=== PATIENT | male | born 1965 | race Caucasian/White ===

== ENCOUNTER 2021-11-03 15:30 | Inpatient (IN) | payer MEDICAID ==
[~2021-11-03] VITALS: Ht 175.3 cm; Wt 64.4 kg
[2021-11-03 16:54] LABS: BASOPHILS % 0.7 % (0.0-2.0); EOSINOPHILS % 0.7 % (0.0-5.0); HEMATOCRIT. 33.2 % (42.0-52.0); HEMOGLOBIN. 10.9 g/dL (14.0-18.0); LYMPHOCYTES % 11.3 % (20.0-50.0); MEAN CORPUSCULAR HEMOGLOBIN 27.9 pg (28.0-32.0); MEAN PLATELET VOLUME 7.7 fl (7.4-10.4); MONOCYTES % 9.4 % (2.0-8.0); NEUTROPHILS % 77.9 % (40.0-76.0); PLATELET 267 x1000/uL (130-400); RED BLOOD CELL COUNT 3.91 mill/uL (4.7-6.1); RED CELL DISTRIBUTION WIDTH 16.1 % (11.6-14.6)
[2021-11-03 16:59] LABS: CHLORIDE 104 mEq/L (98-107)
[2021-11-03] MEDS ORDERED: ASPIRIN 81MG TABLET PO ONE (17:00)
[2021-11-03 17:11] LABS: ETHANOL BLOOD < 10 mg/dL
[2021-11-03 17:53] LABS: *AMPHETAMINES SCREEN URINE NEGATIVE (NEGATIVE); *BARBITURATES SCREEN URINE NEGATIVE (NEGATIVE); *BENZODIAZEPINES SCREEN URINE NEGATIVE (NEGATIVE); *COCAINE SCREEN URINE NEGATIVE (NEGATIVE); CANNABINOID URINE SCREEN NEGATIVE (NEGATIVE); METHADONE URINE SCREEN NEGATIVE (NEGATIVE); OPIATES URINE SCREEN PRESUMTIVE POSITIVE (NEGATIVE); PHENCYCLIDINE URINE SCREEN NEGATIVE (NEGATIVE)
[2021-11-03] MEDS ORDERED: IOHEXOL-300 100 ML BOTTLE ONE (19:48)
[2021-11-03] MEDS: LIDOCAINE 5% PATCH TOP SCH (21:10)
[2021-11-03] MEDS ORDERED: VANCOMYCIN 1G PREMIX 200 ML IV ONE (21:30)
[2021-11-03] MEDS ORDERED: GADOTERATE MEGLUMINE 5 MMOL/10 ML VIAL IV ONE (22:48)
[2021-11-03] MEDS ORDERED: VANCOMYCIN 1G PREMIX 200 ML IV SCH (23:00)
[2021-11-04] MEDS ORDERED: NALOXONE HCL 0.4MG/ML VIAL IV PRN (07:15)
[2021-11-04] MEDS: HYDROCODONE/ACETAMINOPHEN 10/325MG TABLET PO PRN ×3 (07:56→23:49)
[2021-11-04] MEDS: LIDOCAINE 5% PATCH TOP SCH (09:55)
[2021-11-04] MEDS ORDERED: VANCOMYCIN 1G PREMIX 200 ML IV SCH (10:00)
[2021-11-04] MEDS ORDERED: DEXAMETHASONE 4MG/ML 1ML VIAL IV SCH (12:00)
[2021-11-04 13:24] LABS: INR 1.1; PROTHROMBIN TIME 11.3 sec (9.6-11.0)
[2021-11-04 18:10] VITALS: BP 104/73
[2021-11-04] MEDS ORDERED: ibuprofen (18:41)
[2021-11-04] MEDS ORDERED: TOPUD MT (18:41)
[2021-11-04] MEDS ORDERED: METF-873 PO (18:41)
[2021-11-04] MEDS ORDERED: METH-653 MT (18:41)
[2021-11-04] MEDS ORDERED: GABA-290 PO (18:41)
[2021-11-04] MEDS ORDERED: zyprexa (18:41)
[2021-11-04] MEDS ORDERED: QUET100T PO (18:41)
[2021-11-04] MEDS ORDERED: HYDR50TA54 GT (18:41)
[2021-11-04 20:00] VITALS: BP 119/79
[2021-11-04] MEDS: VANCOMYCIN 1.25GM PMX (XELLIA) 250 ML IV SCH (23:49)
[2021-11-05] VITALS: BP 124/81
[2021-11-05] MEDS: METHOCARBAMOL 500MG TABLET PO SCH ×4 (01:26→17:46)
[2021-11-05 04:00] VITALS: BP 122/82
[2021-11-05] MEDS ORDERED: QUETIAPINE FUMARATE 50MG TABLET PO NR (04:30)
[2021-11-05] MEDS: PIPERACILLIN/TAZOBACTAM 3.375G in DEXT 5% WATER 50ML IV SCH ×3 (05:06→23:30)
[2021-11-05] MEDS ORDERED: PIPERACILLIN/TAZOBACTAM 3.375GM/50ML PREMIX IV SCH (06:00)
[2021-11-05 07:31] LABS: CHLORIDE 107 mEq/L (98-107)
[2021-11-05] MEDS: OLANZAPINE 10MG TABLET PO SCH (09:12)
[2021-11-05] MEDS: VANCOMYCIN 1.25GM PMX (XELLIA) 250 ML IV SCH ×3 (10:44→22:01)
[2021-11-05] MEDS: HYDROCODONE/ACETAMINOPHEN 10/325MG TABLET PO PRN (18:57)
[2021-11-05 20:00] VITALS: BP 125/73
[2021-11-05] MEDS ORDERED: QUETIAPINE FUMARATE 50MG TABLET PO SCH (21:00)
[2021-11-05] MEDS: QUETIAPINE FUMARATE 50MG TABLET PO SCH (22:01)
[2021-11-05] MEDS: LORAZEPAM 1MG TABLET PO PRN (23:28)
[2021-11-06 04:00] VITALS: BP 115/70
[2021-11-06] MEDS: PIPERACILLIN/TAZOBACTAM 3.375G in DEXT 5% WATER 50ML IV SCH ×3 (05:52→21:13)
[2021-11-06 06:55] LABS: CHLORIDE 106 mEq/L (98-107)
[2021-11-06 08:00] VITALS: BP 135/97
[2021-11-06] MEDS: VANCOMYCIN 1.25GM PMX (XELLIA) 250 ML IV SCH ×2 (09:03→20:49)
[2021-11-06] MEDS: HYDROCODONE/ACETAMINOPHEN 10/325MG TABLET PO PRN ×4 (09:03→21:12)
[2021-11-06] MEDS: METHOCARBAMOL 500MG TABLET PO SCH ×3 (09:03→16:49)
[2021-11-06] MEDS: OLANZAPINE 10MG TABLET PO SCH (09:06)
[2021-11-06] MEDS: HYDROXYZINE 25MG TABLET PO PRN ×2 (09:24→16:50)
[2021-11-06 12:00] VITALS: BP 130/81
[2021-11-06] MEDS: LORAZEPAM 1MG TABLET PO PRN ×2 (13:24→20:51)
[2021-11-06] MEDS: NICOTINE 14MG PATCH TD SCH (14:08)
[2021-11-06] MEDS: DOCUSATE SODIUM 250MG CAPSULE PO SCH (14:09)
[2021-11-06] MEDS: GABAPENTIN 300MG CAPSULE PO SCH ×2 (14:09→21:13)
[2021-11-06] MEDS: LIDOCAINE 5% PATCH TOP SCH (14:09)
[2021-11-06 16:00] VITALS: BP 131/82
[2021-11-06 20:00] VITALS: BP 129/91
[2021-11-06] MEDS ORDERED: DIPHENHYDRAMINE 50MG/ML VIAL IV PRN (20:45)
[2021-11-06] MEDS: QUETIAPINE FUMARATE 50MG TABLET PO SCH (20:51)
[2021-11-07] VITALS: BP_SYST 127; BP_SYST 130; BP_DIAS 77; BP_DIAS 88
[2021-11-07] MEDS: LORAZEPAM 1MG TABLET PO PRN ×2 (04:37→22:38)
[2021-11-07] MEDS: HYDROCODONE/ACETAMINOPHEN 10/325MG TABLET PO PRN ×3 (04:37→22:39)
[2021-11-07] MEDS: GABAPENTIN 300MG CAPSULE PO SCH (05:05)
[2021-11-07] MEDS: PIPERACILLIN/TAZOBACTAM 3.375G in DEXT 5% WATER 50ML IV SCH ×4 (05:05→22:44)
[2021-11-07 08:00] VITALS: BP 139/99
[2021-11-07] MEDS: VANCOMYCIN 1.25GM PMX (XELLIA) 250 ML IV SCH ×2 (08:45→21:08)
[2021-11-07] MEDS: NICOTINE 14MG PATCH TD SCH (08:45)
[2021-11-07] MEDS: OLANZAPINE 10MG TABLET PO SCH (08:46)
[2021-11-07] MEDS: METHOCARBAMOL 500MG TABLET PO SCH ×4 (08:46→17:14)
[2021-11-07] MEDS: LIDOCAINE 5% PATCH TOP SCH (08:46)
[2021-11-07] MEDS: DOCUSATE SODIUM 250MG CAPSULE PO SCH (08:46)
[2021-11-07] MEDS: HYDROXYZINE 25MG TABLET PO PRN ×2 (09:02→17:15)
[2021-11-07 10:57] LABS: BASOPHILS % 0.7 % (0.0-2.0); EOSINOPHILS % 2.4 % (0.0-5.0); HEMATOCRIT. 31.4 % (42.0-52.0); HEMOGLOBIN. 10.4 g/dL (14.0-18.0); LYMPHOCYTES % 19.1 % (20.0-50.0); MEAN CORPUSCULAR HEMOGLOBIN 27.6 pg (28.0-32.0); MEAN CORPUSCULAR VOLUME 83.3 fL (80.0-94.0); MEAN PLATELET VOLUME 7.5 fl (7.4-10.4); MONOCYTES % 10.8 % (2.0-8.0); PLATELET 226 x1000/uL (130-400); RED BLOOD CELL COUNT 3.77 mill/uL (4.7-6.1); RED CELL DISTRIBUTION WIDTH 16.2 % (11.6-14.6)
[2021-11-07] MEDS: QUETIAPINE FUMARATE 50MG TABLET PO SCH ×2 (11:11→21:11)
[2021-11-07 12:00] VITALS: BP 114/69
[2021-11-07] MEDS: GABAPENTIN 400MG CAPSULE PO SCH ×3 (14:00→22:40)
[2021-11-07 16:00] VITALS: BP 133/73
[2021-11-07 20:00] VITALS: BP 123/77
[2021-11-08] VITALS (16 sets, daily range): BP systolic 89–149; BP diastolic 54–100
[2021-11-08] MEDS: HYDROCODONE/ACETAMINOPHEN 10/325MG TABLET PO PRN (02:49)
[2021-11-08] MEDS: GABAPENTIN 400MG CAPSULE PO SCH ×3 (05:53→21:26)
[2021-11-08] MEDS: LORAZEPAM 1MG TABLET PO PRN (06:28)
[2021-11-08] MEDS: LIDOCAINE 5% PATCH TOP SCH (09:00)
[2021-11-08] MEDS: NICOTINE 14MG PATCH TD SCH (09:31)
[2021-11-08] MEDS: METHOCARBAMOL 500MG TABLET PO SCH ×3 (09:31→17:00)
[2021-11-08] MEDS: QUETIAPINE FUMARATE 50MG TABLET PO SCH ×2 (09:31→21:18)
[2021-11-08] MEDS: DOCUSATE SODIUM 250MG CAPSULE PO SCH (09:31)
[2021-11-08] MEDS: PIPERACILLIN/TAZOBACTAM 3.375G in DEXT 5% WATER 50ML IV SCH ×2 (09:32→21:26)
[2021-11-08] MEDS: VANCOMYCIN 1.25GM PMX (XELLIA) 250 ML IV SCH ×2 (09:32→21:26)
[2021-11-08] MEDS ORDERED: GENTAMICIN SULF 40MG/ML 2ML VIAL ONE (12:34)
[2021-11-08] MEDS ORDERED: THROMBIN (BOVINE) 5000 UNITS/VIAL TOP ONE (12:34)
[2021-11-08] MEDS ORDERED: LIDOCAINE HCL/EPINEPHRINE 1%-EPI 1:100,000 20 ML VIAL ONE (12:35)
[2021-11-08] MEDS ORDERED: SUCCINYLCHOLINE CHLORIDE 200MG/10ML IV ONE (12:51)
[2021-11-08] MEDS ORDERED: ROCURONIUM BROMIDE 10MG/ML VIAL 5ML IV ONE (14:07)
[2021-11-08] MEDS ORDERED: HYDROMORPHONE HCL/PF 2MG/ML CPJ IV PRN (15:30)
[2021-11-08] MEDS ORDERED: ONDANSETRON HCL 4MG/2ML INJ IV PRN (15:30)
[2021-11-08] MEDS ORDERED: LABETALOL 5MG/ML SYR 20 MG/4 ML SYRINGE IV PRN (15:30)
[2021-11-08] MEDS ORDERED: MEPERIDINE HCL/PF 25MG/ML CPJ IV PRN (15:30)
[2021-11-08] MEDS ORDERED: NICARDIPINE 100 MG in SODIUM CHLORIDE 0.9% 60 ML IV PRN (16:00)
[2021-11-08] MEDS: DEXT 5%/LACTATED RINGERS 1,000 ML IV SCH ×2 (17:34→20:00)
[2021-11-08] MEDS: HYDROMORPHONE HCL/PF 2MG/ML CPJ IV PRN (21:19)
[2021-11-09] VITALS (36 sets, daily range): BP systolic 74–149; BP diastolic 50–115
[2021-11-09] MEDS: HYDROMORPHONE HCL/PF 2MG/ML CPJ IV PRN ×7 (01:33→22:36)
[2021-11-09] MEDS: DEXT 5%/LACTATED RINGERS 1,000 ML IV SCH ×3 (05:07→20:00)
[2021-11-09] MEDS: PIPERACILLIN/TAZOBACTAM 3.375G in DEXT 5% WATER 50ML IV SCH ×3 (05:07→21:34)
[2021-11-09] MEDS: GABAPENTIN 400MG CAPSULE PO SCH ×3 (05:08→21:35)
[2021-11-09] MEDS: VANCOMYCIN 1.25GM PMX (XELLIA) 250 ML IV SCH ×2 (08:41→20:11)
[2021-11-09] MEDS: DOCUSATE SODIUM 250MG CAPSULE PO SCH (08:41)
[2021-11-09] MEDS: QUETIAPINE FUMARATE 50MG TABLET PO SCH ×2 (08:41→20:11)
[2021-11-09] MEDS: NICOTINE 14MG PATCH TD SCH (08:42)
[2021-11-09] MEDS: LIDOCAINE 5% PATCH TOP SCH (08:42)
[2021-11-09] MEDS: METHOCARBAMOL 500MG TABLET PO SCH ×3 (08:44→17:02)
[2021-11-09] MEDS: MORPHINE SULFATE 4 MG/ML CPJ (NOT FOR IM USE) IV PRN ×2 (08:44→21:35)
[2021-11-09] MEDS: ONDANSETRON HCL 4MG/2ML INJ IV PRN (11:30)
[2021-11-09] MEDS: HYDROXYZINE 25MG TABLET PO PRN (23:44)
[2021-11-10] VITALS (9 sets, daily range): BP systolic 104–139; BP diastolic 64–97
[2021-11-10] MEDS: MORPHINE SULFATE 4 MG/ML CPJ (NOT FOR IM USE) IV PRN ×6 (00:51→23:57)
[2021-11-10] MEDS: LORAZEPAM 1MG TABLET PO PRN ×3 (02:33→16:18)
[2021-11-10] MEDS: HYDROMORPHONE HCL/PF 2MG/ML CPJ IV PRN ×4 (02:34→21:54)
[2021-11-10] MEDS: DEXT 5%/LACTATED RINGERS 1,000 ML IV SCH ×3 (04:00→20:00)
[2021-11-10] MEDS: GABAPENTIN 400MG CAPSULE PO SCH ×3 (05:32→21:51)
[2021-11-10] MEDS: PIPERACILLIN/TAZOBACTAM 3.375G in DEXT 5% WATER 50ML IV SCH ×4 (05:40→23:30)
[2021-11-10] MEDS: METHOCARBAMOL 500MG TABLET PO SCH ×3 (09:19→16:13)
[2021-11-10] MEDS: DOCUSATE SODIUM 250MG CAPSULE PO SCH (09:20)
[2021-11-10] MEDS: QUETIAPINE FUMARATE 50MG TABLET PO SCH ×2 (09:20→21:51)
[2021-11-10] MEDS: NICOTINE 14MG PATCH TD SCH (09:21)
[2021-11-10] MEDS: LIDOCAINE 5% PATCH TOP SCH (09:22)
[2021-11-10] MEDS: VANCOMYCIN 1.25GM PMX (XELLIA) 250 ML IV SCH ×2 (11:47→21:43)
[2021-11-10 15:42] LABS: BASOPHILS % 0.4 % (0.0-2.0); EOSINOPHILS % 0.7 % (0.0-5.0); HEMATOCRIT. 29.7 % (42.0-52.0); HEMOGLOBIN. 9.7 g/dL (14.0-18.0); LYMPHOCYTES % 9.8 % (20.0-50.0); MEAN CORPUSCULAR HEMOGLOBIN 27.2 pg (28.0-32.0); MEAN CORPUSCULAR VOLUME 83.5 fL (80.0-94.0); MEAN PLATELET VOLUME 7.7 fl (7.4-10.4); MONOCYTES % 14.2 % (2.0-8.0); NEUTROPHILS % 74.9 % (40.0-76.0); PLATELET 195 x1000/uL (130-400); RED BLOOD CELL COUNT 3.56 mill/uL (4.7-6.1); RED CELL DISTRIBUTION WIDTH 16.4 % (11.6-14.6)
[2021-11-10 16:18] LABS: CHLORIDE 95 mEq/L (98-107)
[2021-11-10] MEDS: RIFAMPIN 300MG CAPSULE PO SCH (18:36)
[2021-11-10] MEDS: LAMOTRIGINE 25MG TABLET PO SCH (21:45)
[2021-11-10] MEDS: OLANZAPINE 5MG TABLET ODT PO PRN (23:46)
[2021-11-11] VITALS: BP 130/86
[2021-11-11] MEDS: HYDROMORPHONE HCL/PF 2MG/ML CPJ IV PRN ×2 (01:55→11:34)
[2021-11-11 04:00] VITALS: BP 125/82
[2021-11-11] MEDS: DEXT 5%/LACTATED RINGERS 1,000 ML IV SCH ×4 (04:00→22:30)
[2021-11-11 06:01] LABS: BASOPHILS % 0.5 % (0.0-2.0); EOSINOPHILS % 0.5 % (0.0-5.0); HEMATOCRIT. 26.1 % (42.0-52.0); HEMOGLOBIN. 8.8 g/dL (14.0-18.0); LYMPHOCYTES % 10.6 % (20.0-50.0); MEAN CORPUSCULAR HEMOGLOBIN 27.5 pg (28.0-32.0); MEAN CORPUSCULAR VOLUME 81.6 fL (80.0-94.0); NEUTROPHILS % 74.4 % (40.0-76.0); PLATELET 207 x1000/uL (130-400); RED BLOOD CELL COUNT 3.19 mill/uL (4.7-6.1); RED CELL DISTRIBUTION WIDTH 16.5 % (11.6-14.6)
[2021-11-11 06:18] LABS: CHLORIDE 96 mEq/L (98-107)
[2021-11-11] MEDS: GABAPENTIN 400MG CAPSULE PO SCH ×3 (06:34→21:11)
[2021-11-11 08:00] VITALS: BP 110/72
[2021-11-11] MEDS: MORPHINE SULFATE 4 MG/ML CPJ (NOT FOR IM USE) IV PRN ×5 (08:20→23:47)
[2021-11-11] MEDS: RIFAMPIN 300MG CAPSULE PO SCH ×2 (08:25→16:02)
[2021-11-11] MEDS: LAMOTRIGINE 25MG TABLET PO SCH ×2 (08:25→21:27)
[2021-11-11] MEDS: METHOCARBAMOL 500MG TABLET PO SCH ×4 (08:25→22:21)
[2021-11-11] MEDS: THIAMINE HCL 100MG TABLET PO SCH (08:25)
[2021-11-11] MEDS: VANCOMYCIN 1.25GM PMX (XELLIA) 250 ML IV SCH ×2 (08:26→21:10)
[2021-11-11] MEDS: DOCUSATE SODIUM 250MG CAPSULE PO SCH (08:26)
[2021-11-11] MEDS: QUETIAPINE FUMARATE 50MG TABLET PO SCH ×2 (08:26→21:11)
[2021-11-11] MEDS: NICOTINE 14MG PATCH TD SCH (08:27)
[2021-11-11] MEDS: LIDOCAINE 5% PATCH TOP SCH (08:27)
[2021-11-11] MEDS: ONDANSETRON HCL 4MG/2ML INJ IV PRN (10:02)
[2021-11-11 12:00] VITALS: BP 109/63
[2021-11-11] MEDS: CLONAZEPAM 0.5MG TABLET PO SCH ×2 (13:31→21:13)
[2021-11-11] MEDS: HYDROCODONE/ACETAMINOPHEN 5/325MG TABLET PO PRN (13:32)
[2021-11-11 20:00] VITALS: BP 143/98
[2021-11-11] MEDS: MICONAZOLE NITRATE 2% OINT 71GM TOP SCH (21:00)
[2021-11-11] MEDS: OLANZAPINE 5MG TABLET ODT PO PRN (21:11)
[2021-11-11 21:20] LABS: CREATINE KINASE 65 IU/L (39-308)
[2021-11-12] VITALS: BP 132/84
[2021-11-12] MEDS: HYDROCODONE/ACETAMINOPHEN 5/325MG TABLET PO PRN ×2 (01:13→13:30)
[2021-11-12] MEDS: MORPHINE SULFATE 4 MG/ML CPJ (NOT FOR IM USE) IV PRN (01:50)
[2021-11-12] MEDS: MORPHINE SULFATE 2 MG/ML CPJ (NOT FOR IM USE) IV PRN ×6 (03:58→18:53)
[2021-11-12 04:00] VITALS: BP 128/89
[2021-11-12] MEDS: CLONAZEPAM 0.5MG TABLET PO SCH ×3 (06:04→21:32)
[2021-11-12] MEDS: GABAPENTIN 400MG CAPSULE PO SCH ×3 (06:04→21:32)
[2021-11-12 08:00] VITALS: BP 114/84
[2021-11-12] MEDS: NICOTINE 14MG PATCH TD SCH (09:00)
[2021-11-12] MEDS: DOCUSATE SODIUM 250MG CAPSULE PO SCH (09:00)
[2021-11-12] MEDS: VANCOMYCIN 1.25GM PMX (XELLIA) 250 ML IV SCH ×2 (09:00→21:39)
[2021-11-12] MEDS: METHOCARBAMOL 500MG TABLET PO SCH ×4 (09:01→21:00)
[2021-11-12] MEDS: RIFAMPIN 300MG CAPSULE PO SCH ×2 (09:01→17:08)
[2021-11-12] MEDS: THIAMINE HCL 100MG TABLET PO SCH (09:01)
[2021-11-12] MEDS: LAMOTRIGINE 25MG TABLET PO SCH ×2 (09:02→21:00)
[2021-11-12] MEDS: OLANZAPINE 5MG TABLET ODT PO PRN (09:02)
[2021-11-12] MEDS: QUETIAPINE FUMARATE 50MG TABLET PO SCH ×2 (09:03→21:28)
[2021-11-12] MEDS: LIDOCAINE 5% PATCH TOP SCH (09:11)
[2021-11-12] MEDS: HYDROMORPHONE HCL/PF 2MG/ML CPJ IV PRN (09:13)
[2021-11-12 12:00] VITALS: BP 134/84
[2021-11-12] MEDS: DEXT 5%/LACTATED RINGERS 1,000 ML IV SCH ×2 (12:00→20:00)
[2021-11-12 15:35] VITALS: BP 130/87
[2021-11-12] MEDS: ONDANSETRON HCL 4MG/2ML INJ IV PRN (18:52)
[2021-11-12 20:00] VITALS: BP 147/100
[2021-11-12] MEDS: MICONAZOLE NITRATE 2% OINT 71GM TOP SCH (21:00)
[2021-11-13] MEDS: METHOCARBAMOL 500MG TABLET PO SCH ×4 (03:53→21:50)
[2021-11-13 04:00] VITALS: BP 143/91
[2021-11-13] MEDS: DEXT 5%/LACTATED RINGERS 1,000 ML IV SCH ×3 (04:52→21:58)
[2021-11-13] MEDS: MORPHINE SULFATE 4 MG/ML CPJ (NOT FOR IM USE) IV PRN ×6 (04:52→21:45)
[2021-11-13] MEDS: HYDROMORPHONE HCL/PF 2MG/ML CPJ IV PRN (05:58)
[2021-11-13] MEDS: CLONAZEPAM 0.5MG TABLET PO SCH ×3 (07:35→21:50)
[2021-11-13] MEDS: GABAPENTIN 400MG CAPSULE PO SCH ×3 (07:36→21:47)
[2021-11-13 08:00] VITALS: BP 133/98
[2021-11-13] MEDS: LAMOTRIGINE 25MG TABLET PO SCH ×2 (08:37→21:54)
[2021-11-13] MEDS: QUETIAPINE FUMARATE 50MG TABLET PO SCH ×2 (08:37→21:50)
[2021-11-13] MEDS: RIFAMPIN 300MG CAPSULE PO SCH ×2 (08:38→18:53)
[2021-11-13] MEDS: THIAMINE HCL 100MG TABLET PO SCH (08:38)
[2021-11-13] MEDS: DOCUSATE SODIUM 250MG CAPSULE PO SCH (08:38)
[2021-11-13] MEDS: LIDOCAINE 5% PATCH TOP SCH (08:47)
[2021-11-13] MEDS: VANCOMYCIN 1.25GM PMX (XELLIA) 250 ML IV SCH (08:52)
[2021-11-13] MEDS: ONDANSETRON HCL 4MG/2ML INJ IV PRN (08:52)
[2021-11-13] MEDS: NICOTINE 14MG PATCH TD SCH (09:00)
[2021-11-13 12:00] VITALS: BP 131/77
[2021-11-13] MEDS: HYDROCODONE/APAP 7.5/325MG 1 TAB TABLET PO PRN (13:40)
[2021-11-13 16:00] VITALS: BP 114/75
[2021-11-13 20:00] VITALS: BP 123/77
[2021-11-13] MEDS: MICONAZOLE NITRATE 2% OINT 71GM TOP SCH ×2 (21:52→22:02)
[2021-11-13] MEDS: VANCOMYCIN 1250MG in DEXTROSE 5% WATER 250ML IV SCH (21:55)
[2021-11-14] VITALS: BP 112/73
[2021-11-14] MEDS: HYDROCODONE/APAP 7.5/325MG 1 TAB TABLET PO PRN ×2 (00:30→13:14)
[2021-11-14] MEDS: MORPHINE SULFATE 4 MG/ML CPJ (NOT FOR IM USE) IV PRN ×3 (03:11→10:24)
[2021-11-14] MEDS: DEXT 5%/LACTATED RINGERS 1,000 ML IV SCH (03:13)
[2021-11-14 04:00] VITALS: BP 124/84
[2021-11-14] MEDS: CLONAZEPAM 0.5MG TABLET PO SCH (05:53)
[2021-11-14] MEDS: GABAPENTIN 400MG CAPSULE PO SCH (05:53)
[2021-11-14 07:19] LABS: CHLORIDE 98 mEq/L (98-107)
[2021-11-14 07:58] VITALS: BP 120/64
[2021-11-14] MEDS: NICOTINE 14MG PATCH TD SCH (09:00)
[2021-11-14] MEDS: LIDOCAINE 5% PATCH TOP SCH (09:00)
[2021-11-14] MEDS: QUETIAPINE FUMARATE 50MG TABLET PO SCH (09:04)
[2021-11-14] MEDS: THIAMINE HCL 100MG TABLET PO SCH (09:04)
[2021-11-14] MEDS: RIFAMPIN 300MG CAPSULE PO SCH (09:04)
[2021-11-14] MEDS: DOCUSATE SODIUM 250MG CAPSULE PO SCH (09:04)
[2021-11-14] MEDS: LAMOTRIGINE 25MG TABLET PO SCH (09:05)
[2021-11-14] MEDS: METHOCARBAMOL 500MG TABLET PO SCH (09:05)
[2021-11-14] MEDS: MICONAZOLE NITRATE 2% OINT 71GM TOP SCH (10:13)
[2021-11-14] MEDS: VANCOMYCIN 1250MG in DEXTROSE 5% WATER 250ML IV SCH (10:13)
[2021-11-14 12:00] VITALS: BP 130/83
[2021-11-14 12:54] VITALS: BP 136/76
[2021-11-14 13:14] VITALS: BP 136/82
[2021-11-14] MEDS ORDERED: VANCOMYCIN 1250MG in DEXTROSE 5% WATER 250ML IV SCH (15:00)
[2021-11-23] MEDS ORDERED: HYDR-4001 PO (13:11)
[2021-11-23] MEDS ORDERED: FERR-63 PO (13:11)
[2021-11-23] MEDS ORDERED: TOPUD MT (13:11)
[2021-11-23] MEDS ORDERED: HYDR-3735 PO (13:11)
[2021-11-23] MEDS ORDERED: SULF1TAB44 PO (13:11)
[2021-11-23] MEDS ORDERED: GABA-290 PO (13:11)
== END 2021-11-14 14:10 | DRG 304 ==
LOC: ER 15:30 → MICUSO 11-04 01:42 → 7WST 11-04 12:44 → MICUSO 11-04 13:02 → 7WST 11-04 15:00 → MICUSO 11-04 15:46 → 6EST 11-04 15:50 → MICUSO 11-08 17:43 → 6EST 11-10 02:21
PROVIDERS: ADMIT Internal Medicine; ATTEND Internal Medicine
PROC: 0SG0071 Fusion of Lumbar Vertebral Joint with Autologous Tissue Substitute, Posterior Approach, Posterior Column, Open Approach (ICD-10-PCS; principal; 2021-11-08)
PROC: 0SG3071 Fusion of Lumbosacral Joint with Autologous Tissue Substitute, Posterior Approach, Posterior Column, Open Approach (ICD-10-PCS; 2021-11-08)
PROC: 009U0ZZ Drainage of Spinal Canal, Open Approach (ICD-10-PCS; 2021-11-08)
DX: M48.061 Spinal stenosis, lumbar region without neurogenic claudication (principal); G06.1 Intraspinal abscess and granuloma; G82.20 Paraplegia, unspecified; E44.0 Moderate protein-calorie malnutrition; I42.9 Cardiomyopathy, unspecified; M48.56XA Collapsed vertebra, not elsewhere classified, lumbar region, initial encounter for fracture; F31.2 Bipolar disorder, current episode manic severe with psychotic features; G95.20 Unspecified cord compression; M46.26 Osteomyelitis of vertebra, lumbar region; E11.69 Type 2 diabetes mellitus with other specified complication; I10 Essential (primary) hypertension; D64.9 Anemia, unspecified; M46.46 Discitis, unspecified, lumbar region; J44.9 Chronic obstructive pulmonary disease, unspecified; R74.01 Elevation of levels of liver transaminase levels; F43.10 Post-traumatic stress disorder, unspecified; Z20.822 Contact with and (suspected) exposure to COVID-19; F11.10 Opioid abuse, uncomplicated; F17.210 Nicotine dependence, cigarettes, uncomplicated; M19.90 Unspecified osteoarthritis, unspecified site; Z79.899 Other long term (current) drug therapy; Z86.14 Personal history of Methicillin resistant Staphylococcus aureus infection; Z91.19 Patient's noncompliance with other medical treatment and regimen; Z88.8 Allergy status to other drugs, medicaments and biological substances; F10.11 Alcohol abuse, in remission; F19.90 Other psychoactive substance use, unspecified, uncomplicated
CPT/HCPCS: 36415; 71045; 72100; 72132; 72157; 72158; 76000; 80048; 80053; 80076; 80202; 80305; 80320; 82550; 83036; 83880; 84145; 84484; 85025; 85651; 86141; 87070; 87075; 87077; 87186; 87426; 93005; 93306; 95863; 95925; 95926; 95928; 95929; 97161; 97162; 97530; 99291; A9577; C1713; J0330; J1170; J1200; J1580; J2270; J2405; J2543; J3370; J3490; J7060; J7070; J7121; Q9967; C1762; G0480

== ENCOUNTER 2021-11-15 13:56 | Emergency (ER) | payer MEDICAID ==
[~2021-11-15] VITALS: Ht 175.3 cm; Wt 67.0 kg
[~2021-11-15 13:56] MED LIST: GABA-290 PO; HYDR50TA54 GT; METF-873 PO; METH-653 MT; QUET100T PO; TOPUD MT; ibuprofen; zyprexa
[2021-11-15] MEDS ORDERED: QUETIAPINE FUMARATE 50MG TABLET PO SCH (15:00)
[2021-11-15] MEDS ORDERED: CLONAZEPAM 0.5MG TABLET PO ONE (15:00)
[2021-11-15] MEDS ORDERED: CLONAZEPAM 0.5MG TABLET PO NR (15:45)
[2021-11-15] MEDS ORDERED: HYDROCODONE/ACETAMINOPHEN 10/325MG TABLET PO ONE (17:30)
[2021-11-15] MEDS ORDERED: DIPHENHYDRAMINE 50MG/ML VIAL IM PRN (17:30)
[2021-11-15 19:16] VITALS: BP 142/77
[2021-11-23] MEDS ORDERED: GABA-290 PO (13:11)
[2021-11-23] MEDS ORDERED: HYDR-4001 PO (13:11)
[2021-11-23] MEDS ORDERED: FERR-63 PO (13:11)
[2021-11-23] MEDS ORDERED: TOPUD MT (13:11)
[2021-11-23] MEDS ORDERED: SULF1TAB44 PO (13:11)
[2021-11-23] MEDS ORDERED: HYDR-3735 PO (13:11)
== END 2021-11-15 19:42 | disposition home or self-care (01) ==
LOC: ER 14:11 → SUPCPDRO 18:19 → ER 19:42
DX: F32.9 Major depressive disorder, single episode, unspecified (principal); E11.9 Type 2 diabetes mellitus without complications; I10 Essential (primary) hypertension; F20.9 Schizophrenia, unspecified; D64.9 Anemia, unspecified; Z88.8 Allergy status to other drugs, medicaments and biological substances; Z86.14 Personal history of Methicillin resistant Staphylococcus aureus infection
CPT/HCPCS: 99284; Z7610

== ENCOUNTER 2021-11-17 01:02 | Inpatient (IN) | payer MEDICAID ==
[~2021-11-17] VITALS: Ht 185.4 cm; Wt 80.0 kg
[2021-11-17 03:15] LABS: BASOPHILS % 0.7 % (0.0-2.0); EOSINOPHILS % 1.9 % (0.0-5.0); HEMATOCRIT. 30.3 % (42.0-52.0); HEMOGLOBIN. 9.8 g/dL (14.0-18.0); LYMPHOCYTES % 23.5 % (20.0-50.0); MEAN CORPUSCULAR HEMOGLOBIN 27.2 pg (28.0-32.0); MEAN CORPUSCULAR VOLUME 83.7 fL (80.0-94.0); MEAN PLATELET VOLUME 6.6 fl (7.4-10.4); MONOCYTES % 11.9 % (2.0-8.0); PLATELET 345 x1000/uL (130-400); RED BLOOD CELL COUNT 3.61 mill/uL (4.7-6.1); RED CELL DISTRIBUTION WIDTH 16.5 % (11.6-14.6)
[2021-11-17 03:33] LABS: CHLORIDE 105 mEq/L (98-107)
[2021-11-17 03:41] LABS: ETHANOL BLOOD < 10 mg/dL
[2021-11-17 05:24] LABS: CLARITY URINE CLEAR (CLEAR); COLOR URINE YELLOW (YELLOW); KETONES URINE NEGATIVE (NEGATIVE); LEUKOCYTE ESTERASE URINE NEGATIVE (NEGATIVE); NITRITE URINE NEGATIVE (NEGATIVE); OCCULT BLOOD URINE NEGATIVE (NEGATIVE); PROTEIN URINE NEGATIVE (NEGATIVE); SPECIFIC GRAVITY URINE 1.017 (1.005-1.030); UROBILINOGEN URINE 0.2 E.U./dL (0.2-1.0)
[2021-11-17] MEDS ORDERED: HYDROCODONE/ACETAMINOPHEN 5/325MG TABLET PO ONE (05:30)
[2021-11-17 05:38] LABS: *AMPHETAMINES SCREEN URINE NEGATIVE (NEGATIVE); *BARBITURATES SCREEN URINE NEGATIVE (NEGATIVE); *BENZODIAZEPINES SCREEN URINE NEGATIVE (NEGATIVE); *COCAINE SCREEN URINE NEGATIVE (NEGATIVE); CANNABINOID URINE SCREEN NEGATIVE (NEGATIVE); METHADONE URINE SCREEN NEGATIVE (NEGATIVE); OPIATES URINE SCREEN PRESUMTIVE POSITIVE (NEGATIVE); PHENCYCLIDINE URINE SCREEN NEGATIVE (NEGATIVE)
[2021-11-17] MEDS: OLANZAPINE 5MG TABLET PO SCH ×2 (10:33→17:23)
[2021-11-17] MEDS ORDERED: SODIUM CHLORIDE 0.9% 1,000 ML IV ONE (11:30)
[2021-11-17] MEDS ORDERED: GABAPENTIN 300MG CAPSULE PO ONE (20:30)
[2021-11-18] MEDS: OLANZAPINE 5MG TABLET PO SCH ×2 (09:38→17:38)
[2021-11-18] MEDS ORDERED: ONDANSETRON HCL 4MG/2ML INJ IV PRN (21:30)
[2021-11-18] MEDS ORDERED: CLONIDINE 0.1MG TABLET PO PRN (21:30)
[2021-11-18] MEDS ORDERED: IPRATROPIUM/ALBUTEROL 0.5-3(2.5)MG/3ML NEB NEB PRN (21:30)
[2021-11-18] MEDS ORDERED: ACETAMINOPHEN 325MG TABLET PO PRN ×2 (21:30)
[2021-11-18] MEDS ORDERED: MAGNESIUM/ALUMINUM HYDROXIDE/SIMETHICONE 30ML UDC PO PRN (21:30)
[2021-11-18] MEDS ORDERED: GUAIFENESIN 200MG/10ML SUGAR FREE UDC PO PRN (21:30)
[2021-11-18] MEDS ORDERED: SODIUM CHLORIDE 0.9% 1,000 ML IV SCH (21:45)
[2021-11-18] MEDS: HYDROCODONE/ACETAMINOPHEN 5/325MG TABLET PO PRN (22:08)
[2021-11-18] MEDS ORDERED: VANCOMYCIN 1,750 MG in DEXT 5% WATER 500 ML IV NR (23:00)
[2021-11-19] MEDS: CLONAZEPAM 0.5MG TABLET PO SCH ×2 (01:00→07:12)
[2021-11-19] MEDS: RIFAMPIN 300MG CAPSULE PO SCH ×2 (01:01→09:00)
[2021-11-19] MEDS: METHOCARBAMOL 500MG TABLET PO SCH ×2 (01:36→07:12)
[2021-11-19] MEDS: HYDROCODONE/ACETAMINOPHEN 5/325MG TABLET PO PRN (02:35)
[2021-11-19] MEDS ORDERED: VANCOMYCIN 1GM PMX (XELLIA) 200 ML IV SCH (06:00)
[2021-11-19] MEDS ORDERED: OLANZAPINE 5MG TABLET PO SCH (09:00)
[2021-11-19 09:46] LABS: BASOPHILS % 0.5 % (0.0-2.0); EOSINOPHILS % 1.3 % (0.0-5.0); HEMATOCRIT. 35.6 % (42.0-52.0); HEMOGLOBIN. 11.6 g/dL (14.0-18.0); LYMPHOCYTES % 15.2 % (20.0-50.0); MEAN CORPUSCULAR HEMOGLOBIN 27.2 pg (28.0-32.0); MEAN CORPUSCULAR VOLUME 83.4 fL (80.0-94.0); MEAN PLATELET VOLUME 6.5 fl (7.4-10.4); MONOCYTES % 11.4 % (2.0-8.0); NEUTROPHILS % 71.6 % (40.0-76.0); PLATELET 426 x1000/uL (130-400); RED BLOOD CELL COUNT 4.27 mill/uL (4.7-6.1); RED CELL DISTRIBUTION WIDTH 16.7 % (11.6-14.6)
[2021-11-19 09:56] LABS: CHLORIDE 100 mEq/L (98-107)
[2021-11-19 14:10] VITALS: BP 124/75
[2021-11-20 06:32] LABS: CHLORIDE 107 mEq/L (98-107)
== END 2021-11-19 14:30 | disposition left against medical advice (07) | DRG 344 ==
LOC: ER 01:02 → MICUSO 10:44 → EDBEDREQ 11:03 → ENRESERV 11:59 → CANBEDREQ 15:23
PROVIDERS: ADMIT Internal Medicine; ATTEND Internal Medicine
DX: M46.26 Osteomyelitis of vertebra, lumbar region (principal); R45.851 Suicidal ideations; E46 Unspecified protein-calorie malnutrition; E11.69 Type 2 diabetes mellitus with other specified complication; F25.9 Schizoaffective disorder, unspecified; R45.850 Homicidal ideations; D64.9 Anemia, unspecified; F31.9 Bipolar disorder, unspecified; I10 Essential (primary) hypertension; Z20.822 Contact with and (suspected) exposure to COVID-19; R74.01 Elevation of levels of liver transaminase levels; Z91.09 Other allergy status, other than to drugs and biological substances; Z68.23 Body mass index [BMI] 23.0-23.9, adult; Z53.29 Procedure and treatment not carried out because of patient's decision for other reasons; Z98.890 Other specified postprocedural states; R26.2 Difficulty in walking, not elsewhere classified; M46.46 Discitis, unspecified, lumbar region
CPT/HCPCS: 36415; 80048; 80053; 80202; 80305; 80307; 80320; 80329; 81003; 85025; 96360; 99285; C9803; J3370; J7030; J7060; U0003; U0005; G0480

== ENCOUNTER 2021-11-19 16:38 | Inpatient (IN) | payer MEDICAID ==
[~2021-11-19] VITALS: Ht 172.7 cm; Wt 64.4 kg
[2021-11-19] MEDS ORDERED: ACETAMINOPHEN 325MG TABLET PO ONE (17:45)
[2021-11-19] MEDS: OLANZAPINE 5MG TABLET ODT PO SCH (17:45)
[2021-11-19] MEDS ORDERED: SODIUM CHLORIDE 0.9% 1,000 ML IV ONE (17:45)
[2021-11-19 18:03] LABS: HEMATOCRIT. 34.9 % (42.0-52.0); HEMOGLOBIN. 11.3 g/dL (14.0-18.0); MEAN CORPUSCULAR HEMOGLOBIN 27.2 pg (28.0-32.0); MEAN CORPUSCULAR VOLUME 84.1 fL (80.0-94.0); PLATELET 412 x1000/uL (130-400); RED BLOOD CELL COUNT 4.15 mill/uL (4.7-6.1); RED CELL DISTRIBUTION WIDTH 16.6 % (11.6-14.6)
[2021-11-19 18:15] LABS: CHLORIDE 102 mEq/L (98-107)
[2021-11-19 18:17] LABS: CLARITY URINE CLOUDY (CLEAR); COLOR URINE DARK YELLOW (YELLOW); KETONES URINE TRACE (NEGATIVE); LEUKOCYTE ESTERASE URINE 1+ (NEGATIVE); NITRITE URINE POSITIVE (NEGATIVE); OCCULT BLOOD URINE 1+ (NEGATIVE); PH URINE 5.5 (4.5-8.0); PROTEIN URINE 1+ (NEGATIVE); SPECIFIC GRAVITY URINE 1.017 (1.005-1.030)
[2021-11-19 18:45] LABS: PLATELET ESTIMATE INCREASED
[2021-11-19] MEDS ORDERED: HYDROXYZINE 25MG TABLET PO ONE (21:15)
[2021-11-19] MEDS: GABAPENTIN 300MG CAPSULE PO SCH (21:41)
[2021-11-19] MEDS: CLONAZEPAM 0.5MG TABLET PO SCH (22:46)
[2021-11-19] MEDS: METHOCARBAMOL 750MG TABLET PO SCH (22:46)
[2021-11-20] MEDS ORDERED: MAGNESIUM/ALUMINUM HYDROXIDE/SIMETHICONE 30ML UDC PO PRN (00:45)
[2021-11-20] MEDS ORDERED: GUAIFENESIN 200MG/10ML SUGAR FREE UDC PO PRN (00:45)
[2021-11-20] MEDS ORDERED: VANCOMYCIN 1250MG in DEXTROSE 5% WATER 250ML IV NR (01:00)
[2021-11-20 05:48] LABS: HEMATOCRIT 26.3 % (42.0-52.0); HEMOGLOBIN 8.6 g/dL (14.0-18.0); MEAN CORPUSCULAR HEMOGLOBIN 27.6 pg (28.0-32.0); MEAN CORPUSCULAR VOLUME 84.1 fL (80.0-94.0); PLATELET 229 x1000/uL (130-400); RED BLOOD CELL COUNT 3.13 mill/uL (4.7-6.1); RED CELL DISTRIBUTION WIDTH 16.5 % (11.6-14.6)
[2021-11-20] MEDS: GABAPENTIN 300MG CAPSULE PO SCH ×3 (06:33→20:41)
[2021-11-20] MEDS: METHOCARBAMOL 750MG TABLET PO SCH ×2 (06:33→15:54)
[2021-11-20] MEDS: CLONAZEPAM 0.5MG TABLET PO SCH ×2 (06:33→15:54)
[2021-11-20] MEDS ORDERED: HYDROCODONE/ACETAMINOPHEN 5/325MG TABLET PO PRN (08:30)
[2021-11-20] MEDS ORDERED: ACETAMINOPHEN 325MG TABLET PO PRN (08:30)
[2021-11-20] MEDS: OLANZAPINE 5MG TABLET ODT PO SCH ×2 (09:00→20:41)
[2021-11-20] MEDS ORDERED: VANCOMYCIN 750MG PREMIX 150 ML IV SCH ×2 (09:00→10:00)
[2021-11-20] MEDS: RIFAMPIN 300MG CAPSULE PO SCH ×2 (09:00→20:41)
[2021-11-20] MEDS ORDERED: VANCOMYCIN 1G PREMIX 200 ML IV SCH (12:00)
[2021-11-20] MEDS: VANCOMYCIN 1GM PMX (XELLIA) 200 ML IV SCH ×2 (12:20→23:46)
[2021-11-20] MEDS: HYDROCODONE/ACETAMINOPHEN 5/325MG TABLET PO PRN ×2 (15:54→22:41)
[2021-11-20 16:49] VITALS: BP 141/75
[2021-11-20 16:57] VITALS: BP 141/75
[2021-11-20] MEDS ORDERED: NALOXONE HCL 0.4MG/ML VIAL IV PRN (17:15)
[2021-11-20 20:00] VITALS: BP_SYST 86
[2021-11-21] VITALS: BP 134/86
[2021-11-21] MEDS: HYDROXYZINE 25MG TABLET PO PRN ×3 (02:35→21:26)
[2021-11-21 04:00] VITALS: BP 139/81
[2021-11-21] MEDS: HYDROCODONE/ACETAMINOPHEN 5/325MG TABLET PO PRN ×4 (05:10→22:50)
[2021-11-21] MEDS: GABAPENTIN 300MG CAPSULE PO SCH ×3 (05:11→21:26)
[2021-11-21 07:16] LABS: HEMATOCRIT. 32.1 % (42.0-52.0); HEMOGLOBIN. 10.6 g/dL (14.0-18.0); MEAN CORPUSCULAR HEMOGLOBIN 27.4 pg (28.0-32.0); MEAN CORPUSCULAR VOLUME 83.1 fL (80.0-94.0); MEAN PLATELET VOLUME 6.9 fl (7.4-10.4); PLATELET 308 x1000/uL (130-400); RED BLOOD CELL COUNT 3.86 mill/uL (4.7-6.1); RED CELL DISTRIBUTION WIDTH 16.2 % (11.6-14.6)
[2021-11-21 07:39] LABS: CHLORIDE 105 mEq/L (98-107)
[2021-11-21 08:00] VITALS: BP 124/79
[2021-11-21] MEDS: RIFAMPIN 300MG CAPSULE PO SCH (08:27)
[2021-11-21] MEDS: OLANZAPINE 5MG TABLET ODT PO SCH ×2 (08:27→21:26)
[2021-11-21 12:00] VITALS: BP 129/81
[2021-11-21] MEDS: VANCOMYCIN 1GM PMX (XELLIA) 200 ML IV SCH (13:05)
[2021-11-21] MEDS: SULFAMETHOXAZOLE/TRIMETHOPRIM 800/160MG TABLET PO SCH ×2 (13:55→21:25)
[2021-11-21 14:40] LABS: PLATELET ESTIMATE NORMAL
[2021-11-21 16:00] VITALS: BP 107/69
[2021-11-21] MEDS: DIAZEPAM 5 MG/ML 2ML CPJ IV PRN ×2 (16:54→22:55)
[2021-11-21 20:43] VITALS: BP 123/75
[2021-11-22 00:36] VITALS: BP 118/65
[2021-11-22 04:00] VITALS: BP 109/69
[2021-11-22] MEDS: HYDROCODONE/ACETAMINOPHEN 5/325MG TABLET PO PRN ×3 (05:05→18:34)
[2021-11-22] MEDS: HYDROXYZINE 25MG TABLET PO PRN ×2 (05:20→18:33)
[2021-11-22] MEDS: GABAPENTIN 300MG CAPSULE PO SCH ×3 (05:20→21:01)
[2021-11-22] MEDS: LORAZEPAM 0.5MG TABLET PO PRN ×2 (06:31→18:33)
[2021-11-22 07:26] LABS: HEMOGLOBIN 9.6 g/dL (14.0-18.0); MEAN CORPUSCULAR HEMOGLOBIN 27.4 pg (28.0-32.0); MEAN CORPUSCULAR VOLUME 83.1 fL (80.0-94.0); PLATELET 275 x1000/uL (130-400); RED BLOOD CELL COUNT 3.49 mill/uL (4.7-6.1)
[2021-11-22 07:44] LABS: CHLORIDE 104 mEq/L (98-107)
[2021-11-22 08:00] VITALS: BP 123/64
[2021-11-22 08:02] LABS: TOTAL IRON BINDING CAPACITY 279 ug/dL (250-450)
[2021-11-22 08:07] LABS: FOLIC ACID (FOLATE) SERUM 8.2 ng/mL (>5.38)
[2021-11-22] MEDS: SULFAMETHOXAZOLE/TRIMETHOPRIM 800/160MG TABLET PO SCH ×2 (10:22→20:58)
[2021-11-22] MEDS: OLANZAPINE 5MG TABLET ODT PO SCH ×2 (10:22→20:58)
[2021-11-22 16:00] VITALS: BP 125/72
[2021-11-22 20:00] VITALS: BP 122/84
[2021-11-23] VITALS: BP 96/67
[2021-11-23] MEDS: HYDROCODONE/ACETAMINOPHEN 5/325MG TABLET PO PRN ×4 (00:52→19:30)
[2021-11-23] MEDS: HYDROXYZINE 25MG TABLET PO PRN ×4 (00:52→19:30)
[2021-11-23 04:00] VITALS: BP 99/68
[2021-11-23] MEDS: GABAPENTIN 300MG CAPSULE PO SCH ×3 (06:00→20:34)
[2021-11-23] MEDS: LORAZEPAM 0.5MG TABLET PO PRN ×3 (07:02→19:30)
[2021-11-23 08:00] VITALS: BP 124/84
[2021-11-23] MEDS: OLANZAPINE 5MG TABLET ODT PO SCH ×2 (09:44→20:33)
[2021-11-23] MEDS: SULFAMETHOXAZOLE/TRIMETHOPRIM 800/160MG TABLET PO SCH ×2 (09:44→20:33)
[2021-11-23] MEDS: FERROUS SULFATE 325MG TABLET PO SCH ×2 (09:44→13:17)
[2021-11-23 12:00] VITALS: BP 101/59
[2021-11-23] MEDS ORDERED: TOPUD MT (13:11)
[2021-11-23] MEDS ORDERED: GABA-290 PO (13:11)
[2021-11-23] MEDS ORDERED: FERR-63 PO (13:11)
[2021-11-23] MEDS ORDERED: HYDR-4001 PO (13:11)
[2021-11-23] MEDS ORDERED: HYDR-3735 PO (13:11)
[2021-11-23] MEDS ORDERED: SULF1TAB44 PO (13:11)
[2021-11-23 16:00] VITALS: BP 123/72
[2021-11-23 20:00] VITALS: BP 103/51
[2021-11-24] MEDS: HYDROCODONE/ACETAMINOPHEN 5/325MG TABLET PO PRN ×3 (01:29→13:34)
[2021-11-24] MEDS: HYDROXYZINE 25MG TABLET PO PRN ×3 (01:34→13:33)
[2021-11-24] MEDS: LORAZEPAM 0.5MG TABLET PO PRN ×2 (03:36→13:33)
[2021-11-24] MEDS: GABAPENTIN 300MG CAPSULE PO SCH ×2 (06:51→13:33)
[2021-11-24 08:00] VITALS: BP 107/64
[2021-11-24] MEDS: SULFAMETHOXAZOLE/TRIMETHOPRIM 800/160MG TABLET PO SCH (09:09)
[2021-11-24] MEDS: OLANZAPINE 5MG TABLET ODT PO SCH (09:09)
[2021-11-24 13:54] VITALS: BP 107/64
== END 2021-11-24 15:13 | disposition home or self-care (01) | DRG 422 ==
LOC: ER 16:38 → 7WST 11-20 01:14 → MICUSO 11-20 01:48 → 7WST 11-20 17:02 → 6EST 11-22 13:45
PROVIDERS: ADMIT Internal Medicine; ATTEND Internal Medicine
DX: E86.0 Dehydration (principal); R45.851 Suicidal ideations; E46 Unspecified protein-calorie malnutrition; M46.26 Osteomyelitis of vertebra, lumbar region; M48.56XA Collapsed vertebra, not elsewhere classified, lumbar region, initial encounter for fracture; R45.850 Homicidal ideations; D50.9 Iron deficiency anemia, unspecified; E11.9 Type 2 diabetes mellitus without complications; E03.8 Other specified hypothyroidism; F20.9 Schizophrenia, unspecified; I10 Essential (primary) hypertension; M46.46 Discitis, unspecified, lumbar region; R74.01 Elevation of levels of liver transaminase levels; F32.9 Major depressive disorder, single episode, unspecified; F17.200 Nicotine dependence, unspecified, uncomplicated; F15.90 Other stimulant use, unspecified, uncomplicated; Z68.21 Body mass index [BMI] 21.0-21.9, adult; Z88.8 Allergy status to other drugs, medicaments and biological substances; Z79.899 Other long term (current) drug therapy
CPT/HCPCS: 36415; 72131; 76700; 80048; 80053; 81003; 82607; 82728; 82746; 83540; 83550; 83735; 84100; 84145; 84439; 84443; 84484; 85025; 85027; 85651; 86140; 93005; 97116; 97161; 97162; 97165; 97166; 97530; 97535; 99285; J3370; J7030; J7060

== ENCOUNTER 2022-03-27 14:17 | Inpatient (IN) | payer MEDICAID ==
[~2022-03-27] VITALS: Ht 172.7 cm; Wt 66.0 kg
[~2022-03-27 14:17] MED LIST changes: +FERR-63 PO; +HYDR-3735 PO; +HYDR-4001 PO; -HYDR50TA54 GT; -METF-873 PO; -METH-653 MT; -QUET100T PO; +SULF1TAB44 PO; -ibuprofen; -zyprexa
[2022-03-27] MEDS ORDERED: SODIUM CHLORIDE 0.9% 1,000 ML IV ONE (15:15)
[2022-03-27 16:03] LABS: HEMATOCRIT. 26.9 % (42.0-52.0); HEMOGLOBIN. 9.2 g/dL (14.0-18.0); MEAN CORPUSCULAR HEMOGLOBIN 28.9 pg (28.0-32.0); MEAN CORPUSCULAR VOLUME 84.3 fL (80.0-94.0); MEAN PLATELET VOLUME 6.7 fl (7.4-10.4); PLATELET 144 x1000/uL (130-400); RED BLOOD CELL COUNT 3.19 mill/uL (4.7-6.1); RED CELL DISTRIBUTION WIDTH 17.2 % (11.6-14.6)
[2022-03-27 16:22] LABS: CHLORIDE 100 mEq/L (98-107)
[2022-03-27 16:28] LABS: CLARITY URINE TURBID (CLEAR); COLOR URINE DARK YELLOW (YELLOW); KETONES URINE NEGATIVE (NEGATIVE); LEUKOCYTE ESTERASE URINE 2+ (NEGATIVE); NITRITE URINE NEGATIVE (NEGATIVE); OCCULT BLOOD URINE 3+ (NEGATIVE); PH URINE 5.5 (4.5-8.0); PROTEIN URINE 2+ (NEGATIVE); SPECIFIC GRAVITY URINE 1.022 (1.005-1.030); UROBILINOGEN URINE 0.2 E.U./dL (0.2-1.0)
[2022-03-27] MEDS ORDERED: LORAZEPAM 2MG/ML CPJ IV ONE (16:45)
[2022-03-27 17:16] LABS: PLATELET ESTIMATE NORMAL
[2022-03-27] MEDS ORDERED: CEFTRIAXONE 1 G PREMIX 50 ML IV ONE (18:30)
[2022-03-27] MEDS ORDERED: GADOTERATE MEGLUMINE 5 MMOL/10 ML VIAL IV ONE (19:13)
[2022-03-27] MEDS ORDERED: VANCOMYCIN 1G PREMIX 200 ML IV SCH (19:15)
[2022-03-27] MEDS ORDERED: CEFTRIAXONE 2 G in DEXTROSE 5% WATER 50 ML IV SCH (20:00)
[2022-03-27] MEDS ORDERED: MORPHINE SULFATE 2 MG/ML CPJ (NOT FOR IM USE) IV NR (22:15)
[2022-03-27] MEDS ORDERED: NALOXONE HCL 0.4MG/ML VIAL IV PRN (22:15)
[2022-03-27] MEDS: HYDROCODONE/ACETAMINOPHEN 10/325MG TABLET PO PRN (22:30)
[2022-03-28] VITALS (36 sets, daily range): BP systolic 123–176; BP diastolic 73–109
[2022-03-28] MEDS: HYDROCODONE/ACETAMINOPHEN 10/325MG TABLET PO PRN ×5 (03:16→21:26)
[2022-03-28] MEDS ORDERED: MORPHINE SULFATE 4 MG/ML CPJ (NOT FOR IM USE) IV ONE (06:00)
[2022-03-28] MEDS ORDERED: ONDANSETRON HCL 4MG/2ML INJ IV PRN (08:45)
[2022-03-28] MEDS: DEXT 5%/LACTATED RINGERS 1,000 ML IV SCH ×2 (08:45→17:56)
[2022-03-28] MEDS ORDERED: VANCOMYCIN 1G PREMIX 200 ML IV SCH ×2 (09:00→23:00)
[2022-03-28] MEDS ORDERED: PIPERACILLIN/TAZOBACTAM 3.375 G in DEXTROSE 5% WATER 50 ML IV SCH (12:00)
[2022-03-28] MEDS: DEXAMETHASONE 4MG/ML 1ML VIAL IV SCH ×2 (12:36→17:29)
[2022-03-28] MEDS ORDERED: MORPHINE SULFATE 2 MG/ML CPJ (NOT FOR IM USE) IV SCH (13:45)
[2022-03-28] MEDS: KETOROLAC 15MG/ML VIAL IV PRN ×2 (14:18→20:08)
[2022-03-28 17:30] LABS: INR 1.1; PROTHROMBIN TIME 11.3 sec (9.6-11.0)
[2022-03-28] MEDS ORDERED: ALBUTEROL 6.7GM HFA INHALER ORI PRN (20:00)
[2022-03-28] MEDS ORDERED: CEFTRIAXONE 2 G in DEXTROSE 5% WATER 50 ML IV SCH (21:00)
[2022-03-28] MEDS: CEFTRIAXONE 1,000 MG in DEXTROSE 5% WATER 50 ML IV SCH (21:02)
[2022-03-29] VITALS (57 sets, daily range): BP systolic 90–235; BP diastolic 57–133
[2022-03-29] MEDS: DEXAMETHASONE 4MG/ML 1ML VIAL IV SCH ×5 (00:10→23:28)
[2022-03-29] MEDS: HYDROCODONE/ACETAMINOPHEN 10/325MG TABLET PO PRN (02:04)
[2022-03-29] MEDS: KETOROLAC 15MG/ML VIAL IV PRN ×2 (02:05→08:13)
[2022-03-29] MEDS: DEXT 5%/LACTATED RINGERS 1,000 ML IV SCH ×2 (04:36→15:14)
[2022-03-29 05:47] LABS: CHLORIDE 98 mEq/L (98-107)
[2022-03-29 05:53] LABS: BASOPHILS % 0.3 % (0.0-2.0); HEMATOCRIT. 28.1 % (42.0-52.0); HEMOGLOBIN. 9.8 g/dL (14.0-18.0); LYMPHOCYTES % 15.4 % (20.0-50.0); MEAN CORPUSCULAR HEMOGLOBIN 28.9 pg (28.0-32.0); MEAN CORPUSCULAR VOLUME 83.3 fL (80.0-94.0); MEAN PLATELET VOLUME 6.9 fl (7.4-10.4); MONOCYTES % 6.6 % (2.0-8.0); NEUTROPHILS % 77.7 % (40.0-76.0); PLATELET 149 x1000/uL (130-400); RED BLOOD CELL COUNT 3.38 mill/uL (4.7-6.1); RED CELL DISTRIBUTION WIDTH 17.2 % (11.6-14.6)
[2022-03-29] MEDS: VANCOMYCIN 750MG PREMIX 150 ML IV SCH ×3 (09:42→22:25)
[2022-03-29] MEDS: HYDRALAZINE 20MG/ML VIAL IV PRN (10:19)
[2022-03-29] MEDS: MORPHINE SULFATE 2 MG/ML CPJ (NOT FOR IM USE) IV PRN ×2 (12:12→14:09)
[2022-03-29] MEDS ORDERED: THROMBIN (BOVINE) 5000 UNITS/VIAL TOP ONE (15:06)
[2022-03-29] MEDS ORDERED: LIDOCAINE HCL 1%/EPI 1:200,000 30 ML VIAL ONE (15:06)
[2022-03-29] MEDS ORDERED: GENTAMICIN SULF 40MG/ML 2ML VIAL ONE (15:07)
[2022-03-29] MEDS ORDERED: ONDANSETRON HCL 4MG/2ML INJ ONE (15:24)
[2022-03-29] MEDS ORDERED: NEOSTIGMINE METHYLSULFATE 1MG/ML 10 ML VIAL ONE (15:24)
[2022-03-29] MEDS ORDERED: FENTANYL CITRATE/PF 50MCG/ML 2ML VIAL ONE (15:24)
[2022-03-29] MEDS ORDERED: GLYCOPYRROLATE 0.2 MG/ML 2ML VIAL ONE ×2 (15:24)
[2022-03-29] MEDS ORDERED: MIDAZOLAM HCL 2 MG/2 ML VIAL ONE ×2 (15:25→16:51)
[2022-03-29] MEDS ORDERED: ROCURONIUM BROMIDE 10MG/ML VIAL 5ML IV ONE (15:51)
[2022-03-29] MEDS ORDERED: PROPOFOL 200MG/20ML VIAL IV ONE (16:32)
[2022-03-29] MEDS ORDERED: HYDROMORPHONE HCL/PF 2MG/ML CPJ ONE (16:52)
[2022-03-29] MEDS ORDERED: LABETALOL HCL 5MG/ML VIAL 20ML IV ONE (17:03)
[2022-03-29] MEDS ORDERED: EPHEDRINE SULFATE 50MG/ML VIAL ONE (17:03)
[2022-03-29] MEDS: PROPOFOL 10MG/ML 100ML 100 ML IV PRN ×2 (18:12→23:26)
[2022-03-29] MEDS: NICARDIPINE 100 MG in SODIUM CHLORIDE 0.9% 60 ML IV PRN (18:13)
[2022-03-29] MEDS: CEFTRIAXONE 1,000 MG in DEXTROSE 5% WATER 50 ML IV SCH (20:22)
[2022-03-29] MEDS: MORPHINE SULFATE 4 MG/ML CPJ (NOT FOR IM USE) IV PRN ×2 (20:24→22:41)
[2022-03-30] VITALS (85 sets, daily range): BP systolic 94–147; BP diastolic 47–78
[2022-03-30 00:05] LABS: BG CARBOXYHEMOGLOBIN 0.3 % (0.5-1.5); BG DEOXYHEMOGLOBIN 0.2 % (0.0-5.0); BG FRACTION INSPIRED OXYGEN 100; BG HCO3 ACT 26.5 mmol/L (22.0-26.0); BG METHEMOGLOBIN 0.6 % (0.0-1.5); BG OXYGEN SATURATION 99.8 % (92.0-98.5); BG OXYHEMOGLOBIN 98.9 % (94.0-97.0); BG PCO2 40.6 mmHg (35.0-45.0); BG PH 7.432 (7.350-7.450); BG PO2 509.1 mmHg (75.0-100.0); BG SAMPLE SITE RIGHT RADIAL; BG TOTAL HEMOGLOBIN 10.4 g/dL (12.0-18.0); BG TOTAL RESPIRATORY RATE 12 b/min; BG VENT MODE VENT - AC
[2022-03-30] MEDS: NICARDIPINE 100 MG in SODIUM CHLORIDE 0.9% 60 ML IV PRN ×3 (00:42→20:06)
[2022-03-30 03:43] LABS: HEMATOCRIT 29.8 % (42.0-52.0); HEMOGLOBIN 10.3 g/dL (14.0-18.0); MEAN CORPUSCULAR HEMOGLOBIN 28.5 pg (28.0-32.0); MEAN CORPUSCULAR VOLUME 82.5 fL (80.0-94.0); PLATELET 160 x1000/uL (130-400); RED BLOOD CELL COUNT 3.61 mill/uL (4.7-6.1); RED CELL DISTRIBUTION WIDTH 17.1 % (11.6-14.6)
[2022-03-30] MEDS: PROPOFOL 10MG/ML 100ML 100 ML IV PRN ×4 (04:01→22:26)
[2022-03-30 05:17] LABS: CHLORIDE 100 mEq/L (98-107)
[2022-03-30] MEDS: DEXAMETHASONE 4MG/ML 1ML VIAL IV SCH ×2 (05:48→11:22)
[2022-03-30] MEDS: VANCOMYCIN 750MG PREMIX 150 ML IV SCH ×3 (05:49→22:25)
[2022-03-30] MEDS: MORPHINE SULFATE 4 MG/ML CPJ (NOT FOR IM USE) IV PRN (05:50)
[2022-03-30] MEDS: DEXT 5%/LACTATED RINGERS 1,000 ML IV SCH ×3 (06:03→20:53)
[2022-03-30] MEDS ORDERED: THROMBIN (BOVINE) 5000 UNITS/VIAL TOP ONE (10:13)
[2022-03-30] MEDS ORDERED: LIDOCAINE HCL 1%/EPI 1:200,000 30 ML VIAL ONE (10:14)
[2022-03-30] MEDS ORDERED: GENTAMICIN SULF 40MG/ML 2ML VIAL ONE (10:14)
[2022-03-30] MEDS ORDERED: PROPOFOL 200MG/20ML VIAL IV ONE (13:02)
[2022-03-30] MEDS ORDERED: VECURONIUM BROMIDE 10 MG/VIAL IV ONE (13:02)
[2022-03-30] MEDS ORDERED: VANCOMYCIN HCL 1 GM/VIAL ONE (14:23)
[2022-03-30] MEDS ORDERED: ROCURONIUM BROMIDE 10MG/ML VIAL 5ML IV ONE ×2 (14:45→15:33)
[2022-03-30] MEDS ORDERED: FENTANYL CITRATE/PF 50MCG/ML 2ML VIAL ONE (15:50)
[2022-03-30] MEDS ORDERED: HYDRALAZINE 20MG/ML VIAL ONE (16:03)
[2022-03-30] MEDS: CEFTRIAXONE 1,000 MG in DEXTROSE 5% WATER 50 ML IV SCH (20:52)
[2022-03-31] VITALS (95 sets, daily range): BP systolic 112–161; BP diastolic 35–81
[2022-03-31] MEDS: PROPOFOL 10MG/ML 100ML 100 ML IV PRN ×5 (03:07→18:57)
[2022-03-31] MEDS: NICARDIPINE 100 MG in SODIUM CHLORIDE 0.9% 60 ML IV PRN ×3 (03:08→21:20)
[2022-03-31] MEDS: HYDRALAZINE 20MG/ML VIAL IV PRN (03:08)
[2022-03-31] MEDS: MORPHINE SULFATE 4 MG/ML CPJ (NOT FOR IM USE) IV PRN ×2 (03:19→21:33)
[2022-03-31] MEDS: VANCOMYCIN 750MG PREMIX 150 ML IV SCH ×3 (05:03→21:20)
[2022-03-31] MEDS: DEXT 5%/LACTATED RINGERS 1,000 ML IV SCH ×2 (05:57→14:42)
[2022-03-31 09:39] LABS: BASOPHILS % 0.1 % (0.0-2.0); HEMATOCRIT. 25.2 % (42.0-52.0); LYMPHOCYTES % 8.4 % (20.0-50.0); MEAN CORPUSCULAR HEMOGLOBIN 29.4 pg (28.0-32.0); MEAN CORPUSCULAR VOLUME 82.5 fL (80.0-94.0); MEAN PLATELET VOLUME 6.9 fl (7.4-10.4); MONOCYTES % 11.1 % (2.0-8.0); NEUTROPHILS % 80.4 % (40.0-76.0); PLATELET 153 x1000/uL (130-400); RED BLOOD CELL COUNT 3.06 mill/uL (4.7-6.1); RED CELL DISTRIBUTION WIDTH 17.3 % (11.6-14.6)
[2022-03-31 09:57] LABS: BG BASE EXCESS -2.1 mmol/L (-2.0-2.0); BG CARBOXYHEMOGLOBIN 0.6 % (0.5-1.5); BG DEOXYHEMOGLOBIN 1.4 % (0.0-5.0); BG FRACTION INSPIRED OXYGEN 40; BG METHEMOGLOBIN 0.3 % (0.0-1.5); BG OXYGEN SATURATION 98.6 % (92.0-98.5); BG OXYHEMOGLOBIN 97.7 % (94.0-97.0); BG PCO2 34.8 mmHg (35.0-45.0); BG PH 7.418 (7.350-7.450); BG PO2 120.8 mmHg (75.0-100.0); BG SAMPLE SITE ALINE; BG TOTAL HEMOGLOBIN 9.8 g/dL (12.0-18.0); BG VENT MODE VENT - AC
[2022-03-31 10:05] LABS: CHLORIDE 103 mEq/L (98-107)
[2022-03-31] MEDS: DEXAMETHASONE 4MG/ML 1ML VIAL IV SCH (17:38)
[2022-03-31] MEDS: CEFTRIAXONE 1,000 MG in DEXTROSE 5% WATER 50 ML IV SCH (21:28)
[2022-04-01] VITALS (95 sets, daily range): BP systolic 109–161; BP diastolic 42–91
[2022-04-01] MEDS: PROPOFOL 10MG/ML 100ML 100 ML IV PRN ×6 (00:15→22:43)
[2022-04-01] MEDS: DEXAMETHASONE 4MG/ML 1ML VIAL IV SCH ×4 (01:00→18:06)
[2022-04-01] MEDS: DEXT 5%/LACTATED RINGERS 1,000 ML IV SCH ×3 (03:17→21:03)
[2022-04-01] MEDS: MORPHINE SULFATE 4 MG/ML CPJ (NOT FOR IM USE) IV PRN ×2 (03:57→22:44)
[2022-04-01] MEDS: NICARDIPINE 100 MG in SODIUM CHLORIDE 0.9% 60 ML IV PRN ×3 (04:31→18:39)
[2022-04-01] MEDS: HYDRALAZINE 20MG/ML VIAL IV PRN (04:32)
[2022-04-01 04:54] LABS: BASOPHILS % 0.2 % (0.0-2.0); HEMATOCRIT. 30.7 % (42.0-52.0); HEMOGLOBIN. 10.4 g/dL (14.0-18.0); LYMPHOCYTES % 9.6 % (20.0-50.0); MEAN CORPUSCULAR VOLUME 85.1 fL (80.0-94.0); MEAN PLATELET VOLUME 6.7 fl (7.4-10.4); MONOCYTES % 12.1 % (2.0-8.0); NEUTROPHILS % 78.1 % (40.0-76.0); PLATELET 169 x1000/uL (130-400); RED BLOOD CELL COUNT 3.61 mill/uL (4.7-6.1); RED CELL DISTRIBUTION WIDTH 17.6 % (11.6-14.6)
[2022-04-01] MEDS: VANCOMYCIN 750MG PREMIX 150 ML IV SCH ×3 (05:00→21:02)
[2022-04-01 05:01] LABS: CHLORIDE 103 mEq/L (98-107)
[2022-04-01] MEDS: MORPHINE SULFATE 2 MG/ML CPJ (NOT FOR IM USE) IV PRN (07:56)
[2022-04-01] MEDS ORDERED: FENTANYL 2500MCG/250ML PMX 250 ML IV PRN (10:30)
[2022-04-01] MEDS: FENTANYL CITRATE 2,500 MCG in SODIUM CHLORIDE 0.9% 200 ML IV PRN (10:49)
[2022-04-01] MEDS: RIFAMPIN IV SCH (21:02)
[2022-04-01] MEDS: SODIUM CHLORIDE 0.9% IV SCH (21:02)
[2022-04-01] MEDS: CEFTRIAXONE 1,000 MG in DEXTROSE 5% WATER 50 ML IV SCH (21:02)
[2022-04-02] VITALS (98 sets, daily range): BP systolic 102–170; BP diastolic 46–93
[2022-04-02] MEDS: DEXAMETHASONE 4MG/ML 1ML VIAL IV SCH ×5 (00:49→23:06)
[2022-04-02] MEDS: NICARDIPINE 100 MG in SODIUM CHLORIDE 0.9% 60 ML IV PRN ×3 (02:14→16:51)
[2022-04-02] MEDS: PROPOFOL 10MG/ML 100ML 100 ML IV PRN ×4 (03:35→17:31)
[2022-04-02] MEDS: VANCOMYCIN 750MG PREMIX 150 ML IV SCH ×3 (05:35→21:54)
[2022-04-02] MEDS: FENTANYL CITRATE 2,500 MCG in SODIUM CHLORIDE 0.9% 200 ML IV PRN (06:35)
[2022-04-02] MEDS: SODIUM CHLORIDE 0.9% IV SCH ×2 (09:11→20:04)
[2022-04-02] MEDS: RIFAMPIN IV SCH ×2 (09:11→20:04)
[2022-04-02 10:26] LABS: BG BASE EXCESS -2.6 mmol/L (-2.0-2.0); BG CARBOXYHEMOGLOBIN 0.3 % (0.5-1.5); BG FRACTION INSPIRED OXYGEN 100; BG HCO3 ACT 22.1 mmol/L (22.0-26.0); BG METHEMOGLOBIN 0.4 % (0.0-1.5); BG OXYHEMOGLOBIN 98.3 % (94.0-97.0); BG PCO2 37.4 mmHg (35.0-45.0); BG PH 7.389 (7.350-7.450); BG PO2 181.5 mmHg (75.0-100.0); BG SAMPLE SITE LEFT RADIAL; BG TOTAL HEMOGLOBIN 9.2 g/dL (12.0-18.0); BG TOTAL RESPIRATORY RATE 14 b/min; BG VENT MODE VENT - AC
[2022-04-02] MEDS ORDERED: DEXTROSE 50% WATER 50ML SYRINGE IV PRN (10:30)
[2022-04-02] MEDS ORDERED: BLOOD SUGAR DIAGNOSTIC STRIP TEST SCH (11:30)
[2022-04-02] MEDS: BLOOD SUGAR DIAGNOSTIC STRIP TEST SCH ×3 (11:31→23:15)
[2022-04-02] MEDS: INSULIN LISPRO 100 UNITS/ML SUBCUT SCH ×3 (11:53→23:18)
[2022-04-02] MEDS: HYDRALAZINE 20MG/ML VIAL IV PRN ×2 (11:53→23:06)
[2022-04-02] MEDS ORDERED: INSULIN LISPRO 100 UNITS/ML SUBCUT SCH (12:00)
[2022-04-02] MEDS: DEXT 5%/LACTATED RINGERS 1,000 ML IV SCH (14:18)
[2022-04-02] MEDS ORDERED: FUROSEMIDE 20MG/2ML VIAL IVP SCH (15:00)
[2022-04-02] MEDS: CEFTRIAXONE 1,000 MG in DEXTROSE 5% WATER 50 ML IV SCH (21:55)
[2022-04-03] VITALS (84 sets, daily range): BP systolic 112–157; BP diastolic 48–93
[2022-04-03] MEDS: NICARDIPINE 100 MG in SODIUM CHLORIDE 0.9% 60 ML IV PRN ×3 (00:23→14:51)
[2022-04-03] MEDS: PROPOFOL 10MG/ML 100ML 100 ML IV PRN (03:51)
[2022-04-03] MEDS: DEXT 5%/LACTATED RINGERS 1,000 ML IV SCH ×2 (04:10→17:22)
[2022-04-03] MEDS: DEXAMETHASONE 4MG/ML 1ML VIAL IV SCH ×2 (05:22→12:42)
[2022-04-03] MEDS: VANCOMYCIN 750MG PREMIX 150 ML IV SCH ×3 (05:22→22:21)
[2022-04-03] MEDS: BLOOD SUGAR DIAGNOSTIC STRIP TEST SCH ×3 (05:49→17:08)
[2022-04-03] MEDS: INSULIN LISPRO 100 UNITS/ML SUBCUT SCH ×3 (05:49→17:08)
[2022-04-03 05:52] LABS: HEMATOCRIT. 22.3 % (42.0-52.0); HEMOGLOBIN. 7.8 g/dL (14.0-18.0); MEAN CORPUSCULAR HEMOGLOBIN 29.7 pg (28.0-32.0); MEAN CORPUSCULAR VOLUME 84.4 fL (80.0-94.0); MEAN PLATELET VOLUME 6.7 fl (7.4-10.4); PLATELET 138 x1000/uL (130-400); RED BLOOD CELL COUNT 2.64 mill/uL (4.7-6.1)
[2022-04-03] MEDS: SODIUM CHLORIDE 0.9% IV SCH ×2 (08:11→20:29)
[2022-04-03] MEDS: RIFAMPIN IV SCH ×2 (08:11→20:29)
[2022-04-03] MEDS: FENTANYL CITRATE 2,500 MCG in SODIUM CHLORIDE 0.9% 200 ML IV PRN (08:12)
[2022-04-03] MEDS ORDERED: NALOXONE HCL 0.4MG/ML VIAL IV PRN (11:15)
[2022-04-03] MEDS ORDERED: MORPHINE SULFATE 2 MG/ML CPJ (NOT FOR IM USE) IV PRN (12:15)
[2022-04-03 12:16] LABS: BG BASE EXCESS 1.8 mmol/L (-2.0-2.0); BG CARBOXYHEMOGLOBIN 0.3 % (0.5-1.5); BG DEOXYHEMOGLOBIN 5.4 % (0.0-5.0); BG FRACTION INSPIRED OXYGEN 40; BG HCO3 ACT 26.2 mmol/L (22.0-26.0); BG METHEMOGLOBIN 0.3 % (0.0-1.5); BG OXYGEN SATURATION 94.6 % (92.0-98.5); BG PCO2 40.5 mmHg (35.0-45.0); BG PH 7.429 (7.350-7.450); BG PO2 72.6 mmHg (75.0-100.0); BG SAMPLE SITE ALINE; BG VENT MODE VENT - CPAP
[2022-04-03] MEDS: MORPHINE SULFATE 4 MG/ML CPJ (NOT FOR IM USE) IV PRN ×5 (12:43→22:22)
[2022-04-03] MEDS: LOSARTAN POTASSIUM 50 MG TABLET PO SCH (12:43)
[2022-04-03 13:09] LABS: PLATELET ESTIMATE NORMAL
[2022-04-03 13:23] LABS: CHLORIDE 104 mEq/L (98-107)
[2022-04-03] MEDS: CEFTRIAXONE 1,000 MG in DEXTROSE 5% WATER 50 ML IV SCH (20:26)
[2022-04-04] VITALS (41 sets, daily range): BP systolic 112–163; BP diastolic 49–101
[2022-04-04] MEDS: BLOOD SUGAR DIAGNOSTIC STRIP TEST SCH ×4 (00:16→17:30)
[2022-04-04] MEDS: MORPHINE SULFATE 4 MG/ML CPJ (NOT FOR IM USE) IV PRN ×6 (00:36→17:28)
[2022-04-04] MEDS: HYDRALAZINE 20MG/ML VIAL IV PRN (03:19)
[2022-04-04] MEDS: VANCOMYCIN 750MG PREMIX 150 ML IV SCH ×2 (05:29→14:18)
[2022-04-04] MEDS: INSULIN LISPRO 100 UNITS/ML SUBCUT SCH ×4 (05:38→18:07)
[2022-04-04 05:41] LABS: BASOPHILS % 0.2 % (0.0-2.0); HEMOGLOBIN. 7.2 g/dL (14.0-18.0); LYMPHOCYTES % 7.9 % (20.0-50.0); MEAN CORPUSCULAR HEMOGLOBIN 29.1 pg (28.0-32.0); MEAN CORPUSCULAR VOLUME 84.3 fL (80.0-94.0); MEAN PLATELET VOLUME 6.9 fl (7.4-10.4); MONOCYTES % 8.9 % (2.0-8.0); PLATELET 149 x1000/uL (130-400); RED BLOOD CELL COUNT 2.47 mill/uL (4.7-6.1); RED CELL DISTRIBUTION WIDTH 16.9 % (11.6-14.6)
[2022-04-04 05:46] LABS: HEMATOCRIT. 20.8 % (42.0-52.0)
[2022-04-04] MEDS: RIFAMPIN IV SCH (08:00)
[2022-04-04] MEDS: SODIUM CHLORIDE 0.9% IV SCH (08:00)
[2022-04-04] MEDS: LOSARTAN POTASSIUM 50 MG TABLET PO SCH ×2 (08:00→17:29)
[2022-04-04] MEDS: DEXAMETHASONE 4MG TABLET PO SCH (09:12)
[2022-04-04] MEDS: AMLODIPINE 10MG TABLET PO SCH (11:14)
[2022-04-04] MEDS: NICARDIPINE 100 MG in SODIUM CHLORIDE 0.9% 60 ML IV PRN ×3 (12:12)
[2022-04-05] VITALS: BP 153/83
[2022-04-05] MEDS: HYDROCODONE/ACETAMINOPHEN 10/325MG TABLET PO PRN ×4 (01:10→23:16)
[2022-04-05] MEDS: VANCOMYCIN 750MG PREMIX 150 ML IV SCH ×2 (01:37→10:40)
[2022-04-05 04:00] VITALS: BP 89/49
[2022-04-05] MEDS: SODIUM CHLORIDE 0.9% IV SCH ×3 (04:20→20:44)
[2022-04-05] MEDS: RIFAMPIN IV SCH ×3 (04:20→20:44)
[2022-04-05] MEDS: INSULIN LISPRO 100 UNITS/ML SUBCUT SCH ×5 (06:00→23:19)
[2022-04-05] MEDS: BLOOD SUGAR DIAGNOSTIC STRIP TEST SCH ×5 (06:00→23:19)
[2022-04-05 08:00] VITALS: BP 173/93
[2022-04-05] MEDS: AMLODIPINE 10MG TABLET PO SCH (09:22)
[2022-04-05] MEDS: LOSARTAN POTASSIUM 50 MG TABLET PO SCH ×2 (09:22→17:46)
[2022-04-05] MEDS: DEXAMETHASONE 4MG TABLET PO SCH (09:23)
[2022-04-05] MEDS ORDERED: VANCOMYCIN 750MG PREMIX 150 ML IV SCH (10:00)
[2022-04-05 12:00] VITALS: BP 152/86
[2022-04-05 12:24] LABS: BASOPHILS % 0.2 % (0.0-2.0); EOSINOPHILS % 0.7 % (0.0-5.0); HEMOGLOBIN. 8.1 g/dL (14.0-18.0); LYMPHOCYTES % 9.5 % (20.0-50.0); MEAN CORPUSCULAR HEMOGLOBIN 28.9 pg (28.0-32.0); MEAN CORPUSCULAR VOLUME 85.3 fL (80.0-94.0); MEAN PLATELET VOLUME 6.8 fl (7.4-10.4); MONOCYTES % 8.5 % (2.0-8.0); NEUTROPHILS % 81.1 % (40.0-76.0); PLATELET 162 x1000/uL (130-400); RED BLOOD CELL COUNT 2.82 mill/uL (4.7-6.1); RED CELL DISTRIBUTION WIDTH 17.5 % (11.6-14.6)
[2022-04-05] MEDS ORDERED: HYDRALAZINE HCL 100MG TABLET PO NR (12:45)
[2022-04-05 12:51] LABS: CHLORIDE 107 mEq/L (98-107)
[2022-04-05 16:00] VITALS: BP 150/89
[2022-04-05 20:00] VITALS: BP 149/90
[2022-04-05] MEDS: HYDRALAZINE HCL 100MG TABLET PO SCH (20:45)
[2022-04-05] MEDS: VANCOMYCIN 1.25GM PMX (XELLIA) 250 ML IV SCH (23:16)
[2022-04-06] VITALS (9 sets, daily range): BP systolic 126–171; BP diastolic 68–98
[2022-04-06] MEDS: HYDROCODONE/ACETAMINOPHEN 10/325MG TABLET PO PRN ×5 (04:02→22:22)
[2022-04-06] MEDS: INSULIN LISPRO 100 UNITS/ML SUBCUT SCH ×4 (06:00→23:09)
[2022-04-06] MEDS: BLOOD SUGAR DIAGNOSTIC STRIP TEST SCH ×4 (06:03→23:09)
[2022-04-06] MEDS: AMLODIPINE 10MG TABLET PO SCH (09:45)
[2022-04-06] MEDS: LOSARTAN POTASSIUM 50 MG TABLET PO SCH ×2 (09:45→17:32)
[2022-04-06] MEDS: HYDRALAZINE HCL 100MG TABLET PO SCH ×2 (09:45→20:58)
[2022-04-06] MEDS: RIFAMPIN IV SCH ×2 (09:46→20:58)
[2022-04-06] MEDS: SODIUM CHLORIDE 0.9% IV SCH ×2 (09:46→20:58)
[2022-04-06] MEDS ORDERED: LIDOCAINE HCL/PF 1% 10 MG/ML 5ML VIAL ONE (14:14)
[2022-04-06 14:36] LABS: CHLORIDE 115 mEq/L (98-107)
[2022-04-06] MEDS: VANCOMYCIN 1.25GM PMX (XELLIA) 250 ML IV SCH (17:33)
[2022-04-07] VITALS (9 sets, daily range): BP systolic 119–169; BP diastolic 55–98
[2022-04-07] MEDS: HYDROCODONE/ACETAMINOPHEN 10/325MG TABLET PO PRN ×5 (04:14→21:22)
[2022-04-07] MEDS: BLOOD SUGAR DIAGNOSTIC STRIP TEST SCH ×4 (05:25→23:20)
[2022-04-07] MEDS: INSULIN LISPRO 100 UNITS/ML SUBCUT SCH ×4 (05:26→23:20)
[2022-04-07] MEDS: SODIUM CHLORIDE 0.9% IV SCH ×2 (08:00→21:21)
[2022-04-07] MEDS: RIFAMPIN IV SCH ×2 (08:00→21:21)
[2022-04-07] MEDS: AMLODIPINE 10MG TABLET PO SCH (08:57)
[2022-04-07] MEDS: LOSARTAN POTASSIUM 50 MG TABLET PO SCH ×2 (08:57→17:32)
[2022-04-07] MEDS: HYDRALAZINE HCL 100MG TABLET PO SCH ×2 (08:58→21:22)
[2022-04-07] MEDS: VANCOMYCIN 1.25GM PMX (XELLIA) 250 ML IV SCH (12:08)
[2022-04-08] VITALS: BP 157/94
[2022-04-08 04:00] VITALS: BP 137/80
[2022-04-08] MEDS: HYDROCODONE/ACETAMINOPHEN 10/325MG TABLET PO PRN ×4 (04:24→17:41)
[2022-04-08] MEDS: VANCOMYCIN 1.25GM PMX (XELLIA) 250 ML IV SCH ×2 (05:05→23:37)
[2022-04-08] MEDS: BLOOD SUGAR DIAGNOSTIC STRIP TEST SCH ×4 (05:06→23:46)
[2022-04-08] MEDS: INSULIN LISPRO 100 UNITS/ML SUBCUT SCH ×4 (05:06→23:46)
[2022-04-08 07:22] LABS: CHLORIDE 105 mEq/L (98-107)
[2022-04-08 08:00] VITALS: BP 146/89
[2022-04-08] MEDS: LOSARTAN POTASSIUM 50 MG TABLET PO SCH ×2 (09:03→17:41)
[2022-04-08] MEDS: AMLODIPINE 10MG TABLET PO SCH (09:03)
[2022-04-08] MEDS: HYDRALAZINE HCL 100MG TABLET PO SCH ×2 (09:04→20:38)
[2022-04-08] MEDS: RIFAMPIN IV SCH ×2 (09:04→20:39)
[2022-04-08] MEDS: SODIUM CHLORIDE 0.9% IV SCH ×2 (09:04→20:39)
[2022-04-08 12:00] VITALS: BP 124/71
[2022-04-08] MEDS ORDERED: POTASSIUM CHLORIDE 20MEQ TABLET SR PO NR (15:30)
[2022-04-08 16:00] VITALS: BP 140/80
[2022-04-08 20:00] VITALS: BP 156/95
[2022-04-08] MEDS: LORAZEPAM 2MG/ML CPJ IV PRN (20:52)
[2022-04-08] MEDS: HALOPERIDOL 2MG TABLET PO SCH (23:37)
[2022-04-08] MEDS: BENZTROPINE MESYLATE 1MG TABLET PO SCH (23:37)
[2022-04-08] MEDS: FLUOXETINE HCL 10 MG CAPSULE PO SCH (23:37)
[2022-04-09] VITALS (7 sets, daily range): BP systolic 117–183; BP diastolic 78–99
[2022-04-09] MEDS: INSULIN LISPRO 100 UNITS/ML SUBCUT SCH ×3 (05:31→17:20)
[2022-04-09] MEDS: BLOOD SUGAR DIAGNOSTIC STRIP TEST SCH ×3 (05:31→17:21)
[2022-04-09] MEDS: HYDROCODONE/ACETAMINOPHEN 10/325MG TABLET PO PRN ×3 (05:32→20:06)
[2022-04-09 08:35] LABS: CHLORIDE 107 mEq/L (98-107)
[2022-04-09] MEDS: FLUOXETINE HCL 10 MG CAPSULE PO SCH (08:54)
[2022-04-09] MEDS: HALOPERIDOL 2MG TABLET PO SCH ×2 (08:54→20:49)
[2022-04-09] MEDS: AMLODIPINE 10MG TABLET PO SCH (08:54)
[2022-04-09] MEDS: LOSARTAN POTASSIUM 50 MG TABLET PO SCH ×2 (08:54→17:42)
[2022-04-09] MEDS: HYDRALAZINE HCL 100MG TABLET PO SCH ×2 (08:54→20:50)
[2022-04-09] MEDS: RIFAMPIN IV SCH ×2 (10:45→20:04)
[2022-04-09] MEDS: SODIUM CHLORIDE 0.9% IV SCH ×2 (10:45→20:04)
[2022-04-09] MEDS: LORAZEPAM 2MG/ML CPJ IV PRN ×2 (13:00→17:42)
[2022-04-09] MEDS: VANCOMYCIN 1.25GM PMX (XELLIA) 250 ML IV SCH (17:42)
[2022-04-09] MEDS: BENZTROPINE MESYLATE 1MG TABLET PO SCH (20:49)
[2022-04-10] MEDS: BLOOD SUGAR DIAGNOSTIC STRIP TEST SCH ×4 (00:13→17:36)
[2022-04-10] MEDS: INSULIN LISPRO 100 UNITS/ML SUBCUT SCH ×4 (00:18→18:00)
[2022-04-10] MEDS: LORAZEPAM 2MG/ML CPJ IV PRN ×3 (03:18→20:06)
[2022-04-10] MEDS: HYDROCODONE/ACETAMINOPHEN 10/325MG TABLET PO PRN ×3 (03:52→21:03)
[2022-04-10 04:00] VITALS: BP 133/65
[2022-04-10 08:00] VITALS: BP 144/89
[2022-04-10] MEDS ORDERED: POTASSIUM CHLORIDE 20MEQ TABLET SR PO NR (10:15)
[2022-04-10] MEDS: LOSARTAN POTASSIUM 50 MG TABLET PO SCH ×2 (10:16→17:59)
[2022-04-10] MEDS: HALOPERIDOL 2MG TABLET PO SCH ×2 (10:17→20:54)
[2022-04-10] MEDS: HYDRALAZINE HCL 100MG TABLET PO SCH ×2 (10:17→20:54)
[2022-04-10] MEDS: FLUOXETINE HCL 10 MG CAPSULE PO SCH (10:17)
[2022-04-10] MEDS: AMLODIPINE 10MG TABLET PO SCH (10:18)
[2022-04-10] MEDS: RIFAMPIN IV SCH ×2 (11:28→20:05)
[2022-04-10] MEDS: SODIUM CHLORIDE 0.9% IV SCH ×2 (11:28→20:05)
[2022-04-10 12:00] VITALS: BP 147/80
[2022-04-10] MEDS: VANCOMYCIN 1.25GM PMX (XELLIA) 250 ML IV SCH (12:48)
[2022-04-10 15:53] VITALS: BP 176/90
[2022-04-10] MEDS ORDERED: NALOXONE HCL 0.4MG/ML VIAL IV PRN (16:00)
[2022-04-10 20:00] VITALS: BP 152/63
[2022-04-10] MEDS: BENZTROPINE MESYLATE 1MG TABLET PO SCH (20:54)
[2022-04-11] VITALS: BP 136/81
[2022-04-11] MEDS: HYDROCODONE/ACETAMINOPHEN 10/325MG TABLET PO PRN ×3 (02:42→22:22)
[2022-04-11 04:00] VITALS: BP 144/87
[2022-04-11] MEDS: LORAZEPAM 2MG/ML CPJ IV PRN ×2 (04:00→14:08)
[2022-04-11] MEDS: VANCOMYCIN 1.25GM PMX (XELLIA) 250 ML IV SCH (06:16)
[2022-04-11] MEDS: INSULIN LISPRO 100 UNITS/ML SUBCUT SCH ×4 (06:17→17:50)
[2022-04-11] MEDS: BLOOD SUGAR DIAGNOSTIC STRIP TEST SCH ×4 (06:17→16:50)
[2022-04-11 08:00] VITALS: BP 160/93
[2022-04-11] MEDS: RIFAMPIN IV SCH ×2 (09:12→20:39)
[2022-04-11] MEDS: LOSARTAN POTASSIUM 50 MG TABLET PO SCH ×2 (09:12→17:49)
[2022-04-11] MEDS: SODIUM CHLORIDE 0.9% IV SCH ×2 (09:12→20:39)
[2022-04-11] MEDS: HYDRALAZINE HCL 100MG TABLET PO SCH ×2 (09:12→20:40)
[2022-04-11] MEDS: AMLODIPINE 10MG TABLET PO SCH (09:13)
[2022-04-11] MEDS: FLUOXETINE HCL 10 MG CAPSULE PO SCH (09:13)
[2022-04-11] MEDS: HALOPERIDOL 2MG TABLET PO SCH ×2 (09:14→20:39)
[2022-04-11 12:00] VITALS: BP 141/89
[2022-04-11 14:40] LABS: CHLORIDE 108 mEq/L (98-107)
[2022-04-11 16:00] VITALS: BP 136/80
[2022-04-11 20:00] VITALS: BP 159/91
[2022-04-11] MEDS: BENZTROPINE MESYLATE 1MG TABLET PO SCH (20:39)
[2022-04-11 21:53] LABS: BASOPHILS % 0.6 % (0.0-2.0); LYMPHOCYTES % 20.3 % (20.0-50.0); MEAN CORPUSCULAR HEMOGLOBIN 29.8 pg (28.0-32.0); MEAN CORPUSCULAR VOLUME 88.5 fL (80.0-94.0); MONOCYTES % 13.1 % (2.0-8.0); PLATELET 172 x1000/uL (130-400); RED BLOOD CELL COUNT 2.36 mill/uL (4.7-6.1); RED CELL DISTRIBUTION WIDTH 18.4 % (11.6-14.6)
[2022-04-11 21:59] LABS: HEMATOCRIT. 20.9 % (42.0-52.0)
[2022-04-11 22:06] LABS: CHLORIDE 108 mEq/L (98-107)
[2022-04-12] VITALS: BP 154/83
[2022-04-12] MEDS: BLOOD SUGAR DIAGNOSTIC STRIP TEST SCH ×5 (00:27→23:58)
[2022-04-12] MEDS: VANCOMYCIN 1.25GM PMX (XELLIA) 250 ML IV SCH ×2 (00:28→17:51)
[2022-04-12] MEDS: LORAZEPAM 2MG/ML CPJ IV PRN ×3 (00:28→15:19)
[2022-04-12 04:00] VITALS: BP 147/90
[2022-04-12] MEDS: HYDROCODONE/ACETAMINOPHEN 10/325MG TABLET PO PRN ×4 (04:23→23:59)
[2022-04-12] MEDS: INSULIN LISPRO 100 UNITS/ML SUBCUT SCH ×5 (05:07→23:58)
[2022-04-12 08:00] VITALS: BP 163/96
[2022-04-12] MEDS: FLUOXETINE HCL 10 MG CAPSULE PO SCH (09:36)
[2022-04-12] MEDS: HYDRALAZINE HCL 100MG TABLET PO SCH ×2 (09:36→20:54)
[2022-04-12] MEDS: LOSARTAN POTASSIUM 50 MG TABLET PO SCH ×2 (09:36→17:59)
[2022-04-12] MEDS: HALOPERIDOL 2MG TABLET PO SCH ×2 (09:37→20:54)
[2022-04-12] MEDS: AMLODIPINE 10MG TABLET PO SCH (09:37)
[2022-04-12] MEDS: SODIUM CHLORIDE 0.9% IV SCH ×2 (09:45→20:53)
[2022-04-12] MEDS: RIFAMPIN IV SCH ×2 (09:45→20:53)
[2022-04-12 12:00] VITALS: BP 144/83
[2022-04-12] MEDS ORDERED: POTASSIUM CHLORIDE 20MEQ TABLET SR PO NR (13:00)
[2022-04-12] MEDS ORDERED: LORAZEPAM 2MG/ML CPJ IV PRN (15:15)
[2022-04-12 16:00] VITALS: BP 164/76
[2022-04-12 16:35] LABS: BASOPHILS % 0.9 % (0.0-2.0); EOSINOPHILS % 1.9 % (0.0-5.0); HEMATOCRIT. 22.1 % (42.0-52.0); HEMOGLOBIN. 7.7 g/dL (14.0-18.0); LYMPHOCYTES % 19.7 % (20.0-50.0); MEAN CORPUSCULAR HEMOGLOBIN 30.3 pg (28.0-32.0); MEAN CORPUSCULAR VOLUME 87.2 fL (80.0-94.0); MONOCYTES % 11.5 % (2.0-8.0); PLATELET 194 x1000/uL (130-400); RED BLOOD CELL COUNT 2.54 mill/uL (4.7-6.1); RED CELL DISTRIBUTION WIDTH 18.7 % (11.6-14.6)
[2022-04-12 20:00] VITALS: BP 142/84
[2022-04-12] MEDS: NYSTATIN 100,000 UNITS/GM OINT 15GM TOP SCH (20:54)
[2022-04-12] MEDS: BENZTROPINE MESYLATE 1MG TABLET PO SCH (20:54)
[2022-04-12] MEDS: MENTHOL/LANOLIN/CALAMINE/ZN OX OINT 71GM TOP PRN (20:54)
[2022-04-13] VITALS (8 sets, daily range): BP systolic 129–162; BP diastolic 83–90
[2022-04-13] MEDS: LORAZEPAM 2MG/ML CPJ IV PRN ×3 (04:30→17:24)
[2022-04-13] MEDS: BLOOD SUGAR DIAGNOSTIC STRIP TEST SCH ×3 (05:15→17:50)
[2022-04-13] MEDS: INSULIN LISPRO 100 UNITS/ML SUBCUT SCH ×3 (05:16→18:00)
[2022-04-13] MEDS: HYDROCODONE/ACETAMINOPHEN 10/325MG TABLET PO PRN ×3 (06:49→19:53)
[2022-04-13] MEDS: SODIUM CHLORIDE 0.9% IV SCH ×2 (10:14→19:52)
[2022-04-13] MEDS: RIFAMPIN IV SCH ×2 (10:14→19:52)
[2022-04-13] MEDS: NYSTATIN 100,000 UNITS/GM OINT 15GM TOP SCH ×2 (10:15→21:27)
[2022-04-13] MEDS: HALOPERIDOL 2MG TABLET PO SCH ×2 (10:15→21:26)
[2022-04-13] MEDS: LOSARTAN POTASSIUM 50 MG TABLET PO SCH ×2 (10:16→17:25)
[2022-04-13] MEDS: AMLODIPINE 10MG TABLET PO SCH (10:16)
[2022-04-13] MEDS: FLUOXETINE HCL 10 MG CAPSULE PO SCH (10:16)
[2022-04-13] MEDS: HYDRALAZINE HCL 100MG TABLET PO SCH ×2 (10:21→21:26)
[2022-04-13 12:10] LABS: HEMATOCRIT 20.3 % (42.0-52.0); HEMOGLOBIN 6.8 g/dL (14.0-18.0)
[2022-04-13] MEDS: VANCOMYCIN 1.25GM PMX (XELLIA) 250 ML IV SCH (13:40)
[2022-04-13] MEDS: BENZTROPINE MESYLATE 1MG TABLET PO SCH (21:26)
[2022-04-14] VITALS (8 sets, daily range): BP systolic 123–155; BP diastolic 63–99
[2022-04-14] MEDS: HYDROCODONE/ACETAMINOPHEN 10/325MG TABLET PO PRN ×3 (04:05→23:32)
[2022-04-14 05:51] LABS: HEMATOCRIT 23.7 % (42.0-52.0); HEMOGLOBIN 8.2 g/dL (14.0-18.0)
[2022-04-14] MEDS: INSULIN LISPRO 100 UNITS/ML SUBCUT SCH ×5 (06:00→23:38)
[2022-04-14] MEDS: VANCOMYCIN 1.25GM PMX (XELLIA) 250 ML IV SCH ×2 (06:03→23:38)
[2022-04-14] MEDS: BLOOD SUGAR DIAGNOSTIC STRIP TEST SCH ×5 (06:06→23:38)
[2022-04-14] MEDS: LORAZEPAM 2MG/ML CPJ IV PRN ×4 (06:15→21:41)
[2022-04-14] MEDS: FLUOXETINE HCL 10 MG CAPSULE PO SCH (09:10)
[2022-04-14] MEDS: LOSARTAN POTASSIUM 50 MG TABLET PO SCH ×2 (09:10→17:24)
[2022-04-14] MEDS: HALOPERIDOL 2MG TABLET PO SCH ×2 (09:10→21:08)
[2022-04-14] MEDS: AMLODIPINE 10MG TABLET PO SCH (09:11)
[2022-04-14] MEDS: HYDRALAZINE HCL 100MG TABLET PO SCH ×2 (09:20→21:08)
[2022-04-14] MEDS: NYSTATIN 100,000 UNITS/GM OINT 15GM TOP SCH ×2 (09:20→21:09)
[2022-04-14] MEDS: SODIUM CHLORIDE 0.9% IV SCH ×2 (10:26→21:15)
[2022-04-14] MEDS: RIFAMPIN IV SCH ×2 (10:26→21:15)
[2022-04-14] MEDS: BENZTROPINE MESYLATE 1MG TABLET PO SCH (21:08)
[2022-04-15] VITALS: BP 146/89
[2022-04-15 04:00] VITALS: BP 122/81
[2022-04-15] MEDS: BLOOD SUGAR DIAGNOSTIC STRIP TEST SCH ×3 (06:00→18:08)
[2022-04-15] MEDS: INSULIN LISPRO 100 UNITS/ML SUBCUT SCH ×3 (06:00→18:00)
[2022-04-15] MEDS: LORAZEPAM 2MG/ML CPJ IV PRN (06:18)
[2022-04-15 07:37] LABS: CHLORIDE 105 mEq/L (98-107)
[2022-04-15 07:47] LABS: TOTAL IRON BINDING CAPACITY 191 ug/dL (250-450)
[2022-04-15 08:00] VITALS: BP 118/74
[2022-04-15] MEDS: SODIUM CHLORIDE 0.9% IV SCH ×2 (09:01→21:18)
[2022-04-15] MEDS: RIFAMPIN IV SCH ×2 (09:01→21:18)
[2022-04-15] MEDS: HYDRALAZINE HCL 100MG TABLET PO SCH ×2 (09:03→21:19)
[2022-04-15] MEDS: AMLODIPINE 10MG TABLET PO SCH (09:03)
[2022-04-15] MEDS: HALOPERIDOL 2MG TABLET PO SCH ×2 (09:03→21:19)
[2022-04-15] MEDS: LOSARTAN POTASSIUM 50 MG TABLET PO SCH ×2 (09:03→18:18)
[2022-04-15] MEDS: FLUOXETINE HCL 10 MG CAPSULE PO SCH (09:03)
[2022-04-15] MEDS: NYSTATIN 100,000 UNITS/GM OINT 15GM TOP SCH ×2 (09:08→21:20)
[2022-04-15 09:51] LABS: FOLIC ACID (FOLATE) SERUM 6.4 ng/mL (>5.38)
[2022-04-15] MEDS: HYDROCODONE/ACETAMINOPHEN 10/325MG TABLET PO PRN ×2 (11:00→18:19)
[2022-04-15 12:00] VITALS: BP 103/55
[2022-04-15] MEDS: LORAZEPAM 1MG TABLET PO PRN ×2 (14:02→21:19)
[2022-04-15 16:00] VITALS: BP 118/66
[2022-04-15] MEDS: VANCOMYCIN 1.25GM PMX (XELLIA) 250 ML IV SCH (18:19)
[2022-04-15 20:00] VITALS: BP 119/72
[2022-04-15] MEDS: BENZTROPINE MESYLATE 1MG TABLET PO SCH (21:18)
[2022-04-16] VITALS: BP 125/78
[2022-04-16 04:00] VITALS: BP 120/78
[2022-04-16] MEDS: HYDROCODONE/ACETAMINOPHEN 10/325MG TABLET PO PRN ×4 (05:01→22:17)
[2022-04-16] MEDS: BLOOD SUGAR DIAGNOSTIC STRIP TEST SCH ×4 (06:00→18:41)
[2022-04-16] MEDS: INSULIN LISPRO 100 UNITS/ML SUBCUT SCH ×4 (06:00→18:40)
[2022-04-16 08:00] VITALS: BP 160/88
[2022-04-16] MEDS: NYSTATIN 100,000 UNITS/GM OINT 15GM TOP SCH ×2 (09:00→22:18)
[2022-04-16] MEDS: AMLODIPINE 10MG TABLET PO SCH (10:24)
[2022-04-16] MEDS: LOSARTAN POTASSIUM 50 MG TABLET PO SCH ×2 (10:24→18:37)
[2022-04-16] MEDS: HYDRALAZINE HCL 100MG TABLET PO SCH ×2 (10:24→20:38)
[2022-04-16] MEDS: HALOPERIDOL 2MG TABLET PO SCH ×2 (10:24→20:38)
[2022-04-16] MEDS: FLUOXETINE HCL 10 MG CAPSULE PO SCH (10:25)
[2022-04-16] MEDS: RIFAMPIN IV SCH ×2 (10:41→22:17)
[2022-04-16] MEDS: SODIUM CHLORIDE 0.9% IV SCH ×2 (10:41→22:17)
[2022-04-16] MEDS: VANCOMYCIN 1.25GM PMX (XELLIA) 250 ML IV SCH (10:42)
[2022-04-16 12:00] VITALS: BP 130/73
[2022-04-16 13:53] LABS: BASOPHILS % 0.9 % (0.0-2.0); EOSINOPHILS % 1.8 % (0.0-5.0); HEMATOCRIT. 22.2 % (42.0-52.0); HEMOGLOBIN. 7.6 g/dL (14.0-18.0); LYMPHOCYTES % 17.5 % (20.0-50.0); MEAN CORPUSCULAR VOLUME 87.8 fL (80.0-94.0); MEAN PLATELET VOLUME 7.2 fl (7.4-10.4); MONOCYTES % 7.8 % (2.0-8.0); PLATELET 184 x1000/uL (130-400); RED BLOOD CELL COUNT 2.52 mill/uL (4.7-6.1); RED CELL DISTRIBUTION WIDTH 18.3 % (11.6-14.6)
[2022-04-16] MEDS: LORAZEPAM 1MG TABLET PO PRN ×2 (13:57→20:38)
[2022-04-16 14:06] LABS: CHLORIDE 105 mEq/L (98-107)
[2022-04-16 16:00] VITALS: BP 113/70
[2022-04-16 20:00] VITALS: BP 128/76
[2022-04-16] MEDS: BENZTROPINE MESYLATE 1MG TABLET PO SCH (20:37)
[2022-04-16] MEDS: TRAZODONE HCL 50MG TABLET PO SCH (20:37)
[2022-04-17] VITALS: BP 106/64
[2022-04-17] MEDS: BLOOD SUGAR DIAGNOSTIC STRIP TEST SCH ×4 (00:15→18:58)
[2022-04-17 04:00] VITALS: BP 135/80
[2022-04-17] MEDS: VANCOMYCIN 1.25GM PMX (XELLIA) 250 ML IV SCH (05:12)
[2022-04-17] MEDS: HYDROCODONE/ACETAMINOPHEN 10/325MG TABLET PO PRN ×4 (05:13→21:07)
[2022-04-17] MEDS: LORAZEPAM 1MG TABLET PO PRN ×4 (05:13→21:07)
[2022-04-17] MEDS: INSULIN LISPRO 100 UNITS/ML SUBCUT SCH ×4 (05:53→18:00)
[2022-04-17 07:33] LABS: BASOPHILS % 0.7 % (0.0-2.0); EOSINOPHILS % 2.3 % (0.0-5.0); HEMATOCRIT. 21.6 % (42.0-52.0); HEMOGLOBIN. 7.5 g/dL (14.0-18.0); LYMPHOCYTES % 17.7 % (20.0-50.0); MEAN CORPUSCULAR HEMOGLOBIN 30.4 pg (28.0-32.0); MEAN CORPUSCULAR VOLUME 87.8 fL (80.0-94.0); MEAN PLATELET VOLUME 6.8 fl (7.4-10.4); MONOCYTES % 8.3 % (2.0-8.0); PLATELET 166 x1000/uL (130-400); RED BLOOD CELL COUNT 2.46 mill/uL (4.7-6.1); RED CELL DISTRIBUTION WIDTH 17.7 % (11.6-14.6)
[2022-04-17 08:00] VITALS: BP 130/77
[2022-04-17] MEDS: HYDRALAZINE HCL 100MG TABLET PO SCH ×2 (08:53→20:11)
[2022-04-17] MEDS: HALOPERIDOL 2MG TABLET PO SCH ×2 (08:53→20:10)
[2022-04-17] MEDS: FLUOXETINE HCL 10 MG CAPSULE PO SCH (08:54)
[2022-04-17] MEDS: LOSARTAN POTASSIUM 50 MG TABLET PO SCH ×2 (08:54→16:05)
[2022-04-17] MEDS: AMLODIPINE 10MG TABLET PO SCH (08:54)
[2022-04-17 12:00] VITALS: BP 128/90
[2022-04-17] MEDS: NYSTATIN 100,000 UNITS/GM OINT 15GM TOP SCH ×2 (12:18→20:12)
[2022-04-17 16:00] VITALS: BP 123/74
[2022-04-17] MEDS ORDERED: NALOXONE HCL 0.4MG/ML VIAL IV PRN (16:00)
[2022-04-17 20:00] VITALS: BP 140/82
[2022-04-17] MEDS: TRAZODONE HCL 50MG TABLET PO SCH (20:11)
[2022-04-17] MEDS: BENZTROPINE MESYLATE 1MG TABLET PO SCH (20:11)
[2022-04-18] VITALS: BP 143/73
[2022-04-18] MEDS: BLOOD SUGAR DIAGNOSTIC STRIP TEST SCH ×5 (00:54→23:38)
[2022-04-18] MEDS: VANCOMYCIN 1.25GM PMX (XELLIA) 250 ML IV SCH ×2 (00:59→17:18)
[2022-04-18 04:00] VITALS: BP 142/81
[2022-04-18] MEDS: INSULIN LISPRO 100 UNITS/ML SUBCUT SCH ×5 (06:00→23:37)
[2022-04-18] MEDS: LORAZEPAM 1MG TABLET PO PRN ×4 (06:06→21:59)
[2022-04-18] MEDS: HYDROCODONE/ACETAMINOPHEN 10/325MG TABLET PO PRN ×3 (06:06→21:21)
[2022-04-18 08:00] VITALS: BP 146/82
[2022-04-18 08:06] LABS: HEMATOCRIT. 23.3 % (42.0-52.0); HEMOGLOBIN. 8.1 g/dL (14.0-18.0); LYMPHOCYTES % 30.1 % (20.0-50.0); MEAN CORPUSCULAR HEMOGLOBIN 30.3 pg (28.0-32.0); MEAN CORPUSCULAR VOLUME 87.7 fL (80.0-94.0); MEAN PLATELET VOLUME 6.9 fl (7.4-10.4); MONOCYTES % 10.8 % (2.0-8.0); NEUTROPHILS % 55.1 % (40.0-76.0); PLATELET 185 x1000/uL (130-400); RED BLOOD CELL COUNT 2.66 mill/uL (4.7-6.1); RED CELL DISTRIBUTION WIDTH 17.9 % (11.6-14.6)
[2022-04-18 08:16] LABS: CHLORIDE 105 mEq/L (98-107)
[2022-04-18] MEDS: HYDRALAZINE HCL 100MG TABLET PO SCH ×2 (08:41→19:57)
[2022-04-18] MEDS: NYSTATIN 100,000 UNITS/GM OINT 15GM TOP SCH ×2 (08:42→19:58)
[2022-04-18] MEDS: FLUOXETINE HCL 10 MG CAPSULE PO SCH (08:42)
[2022-04-18] MEDS: AMLODIPINE 10MG TABLET PO SCH (08:42)
[2022-04-18] MEDS: HALOPERIDOL 2MG TABLET PO SCH ×2 (08:42→19:58)
[2022-04-18] MEDS: LOSARTAN POTASSIUM 50 MG TABLET PO SCH ×2 (08:42→17:18)
[2022-04-18 12:00] VITALS: BP 125/72
[2022-04-18 16:00] VITALS: BP 137/82
[2022-04-18] MEDS: BENZTROPINE MESYLATE 1MG TABLET PO SCH (19:57)
[2022-04-18] MEDS: TRAZODONE HCL 50MG TABLET PO SCH (19:58)
[2022-04-18 20:00] VITALS: BP 141/89
[2022-04-19] VITALS: BP 138/82
[2022-04-19 04:00] VITALS: BP 138/83
[2022-04-19] MEDS: HYDROCODONE/ACETAMINOPHEN 10/325MG TABLET PO PRN ×4 (04:56→22:51)
[2022-04-19] MEDS: INSULIN LISPRO 100 UNITS/ML SUBCUT SCH ×3 (05:02→18:00)
[2022-04-19] MEDS: BLOOD SUGAR DIAGNOSTIC STRIP TEST SCH ×3 (05:02→18:11)
[2022-04-19] MEDS: NYSTATIN 100,000 UNITS/GM OINT 15GM TOP SCH ×2 (09:00→21:04)
[2022-04-19] MEDS: AMLODIPINE 10MG TABLET PO SCH (09:15)
[2022-04-19] MEDS: HYDRALAZINE HCL 100MG TABLET PO SCH ×2 (09:16→21:04)
[2022-04-19] MEDS: LOSARTAN POTASSIUM 50 MG TABLET PO SCH ×2 (09:16→16:44)
[2022-04-19] MEDS: FLUOXETINE HCL 10 MG CAPSULE PO SCH (09:16)
[2022-04-19] MEDS: HALOPERIDOL 2MG TABLET PO SCH ×2 (09:19→20:57)
[2022-04-19] MEDS: LORAZEPAM 1MG TABLET PO PRN ×3 (11:44→22:51)
[2022-04-19 12:00] VITALS: BP 114/75
[2022-04-19] MEDS: VANCOMYCIN 1.25GM PMX (XELLIA) 250 ML IV SCH (12:52)
[2022-04-19 16:00] VITALS: BP 117/75
[2022-04-19 20:00] VITALS: BP 116/71
[2022-04-19] MEDS: TRAZODONE HCL 50MG TABLET PO SCH (20:58)
[2022-04-19] MEDS: BENZTROPINE MESYLATE 1MG TABLET PO SCH (21:04)
[2022-04-20] VITALS: BP 105/68
[2022-04-20] MEDS: BLOOD SUGAR DIAGNOSTIC STRIP TEST SCH ×5 (00:30→23:31)
[2022-04-20] MEDS: INSULIN LISPRO 100 UNITS/ML SUBCUT SCH ×5 (00:48→23:32)
[2022-04-20 04:00] VITALS: BP 108/74
[2022-04-20] MEDS: VANCOMYCIN 1.25GM PMX (XELLIA) 250 ML IV SCH ×2 (06:04→23:36)
[2022-04-20 07:50] LABS: CHLORIDE 103 mEq/L (98-107)
[2022-04-20 07:56] LABS: BASOPHILS % 1.1 % (0.0-2.0); EOSINOPHILS % 2.7 % (0.0-5.0); HEMATOCRIT. 25.4 % (42.0-52.0); HEMOGLOBIN. 8.8 g/dL (14.0-18.0); LYMPHOCYTES % 33.6 % (20.0-50.0); MEAN CORPUSCULAR HEMOGLOBIN 30.1 pg (28.0-32.0); MEAN CORPUSCULAR VOLUME 87.1 fL (80.0-94.0); MONOCYTES % 11.3 % (2.0-8.0); NEUTROPHILS % 51.3 % (40.0-76.0); PLATELET 231 x1000/uL (130-400); RED BLOOD CELL COUNT 2.92 mill/uL (4.7-6.1); RED CELL DISTRIBUTION WIDTH 17.4 % (11.6-14.6)
[2022-04-20] MEDS: FLUOXETINE HCL 10 MG CAPSULE PO SCH (08:34)
[2022-04-20] MEDS: HALOPERIDOL 2MG TABLET PO SCH ×2 (08:35→21:00)
[2022-04-20] MEDS: HYDROCODONE/ACETAMINOPHEN 10/325MG TABLET PO PRN ×3 (08:35→23:33)
[2022-04-20] MEDS: LOSARTAN POTASSIUM 50 MG TABLET PO SCH ×2 (08:35→17:13)
[2022-04-20] MEDS: AMLODIPINE 10MG TABLET PO SCH (08:35)
[2022-04-20] MEDS: NYSTATIN 100,000 UNITS/GM OINT 15GM TOP SCH ×2 (08:36→21:25)
[2022-04-20] MEDS: HYDRALAZINE HCL 100MG TABLET PO SCH ×2 (09:00→20:59)
[2022-04-20] MEDS: LORAZEPAM 1MG TABLET PO PRN (12:08)
[2022-04-20] MEDS ORDERED: NALOXONE HCL 0.4MG/ML VIAL IV PRN (13:45)
[2022-04-20 16:00] VITALS: BP 108/66
[2022-04-20 20:00] VITALS: BP 150/97
[2022-04-20] MEDS: TRAZODONE HCL 50MG TABLET PO SCH (21:00)
[2022-04-20] MEDS: BENZTROPINE MESYLATE 1MG TABLET PO SCH (21:00)
[2022-04-20 23:59] VITALS: BP 111/70
[2022-04-21 04:00] VITALS: BP 129/56
[2022-04-21] MEDS: INSULIN LISPRO 100 UNITS/ML SUBCUT SCH ×4 (06:00→23:40)
[2022-04-21] MEDS: BLOOD SUGAR DIAGNOSTIC STRIP TEST SCH ×4 (06:00→23:40)
[2022-04-21 06:55] LABS: BASOPHILS % 1.1 % (0.0-2.0); EOSINOPHILS % 3.3 % (0.0-5.0); HEMATOCRIT. 25.1 % (42.0-52.0); HEMOGLOBIN. 8.6 g/dL (14.0-18.0); MEAN CORPUSCULAR HEMOGLOBIN 30.1 pg (28.0-32.0); MEAN CORPUSCULAR VOLUME 87.5 fL (80.0-94.0); MONOCYTES % 13.5 % (2.0-8.0); NEUTROPHILS % 39.1 % (40.0-76.0); PLATELET 224 x1000/uL (130-400); RED BLOOD CELL COUNT 2.86 mill/uL (4.7-6.1); RED CELL DISTRIBUTION WIDTH 17.1 % (11.6-14.6)
[2022-04-21 07:13] LABS: CHLORIDE 105 mEq/L (98-107)
[2022-04-21 08:00] VITALS: BP 127/78
[2022-04-21] MEDS: HALOPERIDOL 2MG TABLET PO SCH ×2 (08:51→20:15)
[2022-04-21] MEDS: HYDROCODONE/ACETAMINOPHEN 10/325MG TABLET PO PRN ×2 (08:51→15:10)
[2022-04-21] MEDS: LOSARTAN POTASSIUM 50 MG TABLET PO SCH ×2 (08:51→16:13)
[2022-04-21] MEDS: FLUOXETINE HCL 10 MG CAPSULE PO SCH (08:51)
[2022-04-21] MEDS: AMLODIPINE 10MG TABLET PO SCH (08:51)
[2022-04-21] MEDS: NYSTATIN 100,000 UNITS/GM OINT 15GM TOP SCH ×2 (08:51→20:16)
[2022-04-21] MEDS: HYDRALAZINE HCL 100MG TABLET PO SCH ×2 (08:52→20:15)
[2022-04-21 12:00] VITALS: BP 132/82
[2022-04-21] MEDS: LORAZEPAM 1MG TABLET PO PRN ×2 (12:11→21:26)
[2022-04-21 16:00] VITALS: BP 132/85
[2022-04-21] MEDS: VANCOMYCIN 1.25GM PMX (XELLIA) 250 ML IV SCH (17:09)
[2022-04-21 19:42] VITALS: BP 105/64
[2022-04-21] MEDS: BENZTROPINE MESYLATE 1MG TABLET PO SCH (20:14)
[2022-04-21] MEDS: TRAZODONE HCL 50MG TABLET PO SCH (20:15)
[2022-04-22] MEDS: INSULIN LISPRO 100 UNITS/ML SUBCUT SCH (06:00)
[2022-04-22] MEDS: BLOOD SUGAR DIAGNOSTIC STRIP TEST SCH ×3 (06:00→17:00)
[2022-04-22 08:00] VITALS: BP 129/86
[2022-04-22] MEDS: HALOPERIDOL 2MG TABLET PO SCH ×2 (09:04→20:16)
[2022-04-22] MEDS: FLUOXETINE HCL 10 MG CAPSULE PO SCH (09:04)
[2022-04-22] MEDS: LOSARTAN POTASSIUM 50 MG TABLET PO SCH ×2 (09:05→16:42)
[2022-04-22] MEDS: MENTHOL/LANOLIN/CALAMINE/ZN OX OINT 71GM TOP PRN ×2 (09:05→20:16)
[2022-04-22] MEDS: AMLODIPINE 10MG TABLET PO SCH (09:05)
[2022-04-22] MEDS: HYDRALAZINE HCL 100MG TABLET PO SCH ×2 (09:05→20:17)
[2022-04-22] MEDS: NYSTATIN 100,000 UNITS/GM OINT 15GM TOP SCH ×2 (09:06→20:16)
[2022-04-22] MEDS: HYDROCODONE/ACETAMINOPHEN 10/325MG TABLET PO PRN ×3 (09:10→22:01)
[2022-04-22 12:00] VITALS: BP 108/71
[2022-04-22] MEDS: VANCOMYCIN 1.25GM PMX (XELLIA) 250 ML IV SCH (12:48)
[2022-04-22 16:00] VITALS: BP 105/68
[2022-04-22] MEDS: LORAZEPAM 1MG TABLET PO PRN ×2 (16:13→20:16)
[2022-04-22 16:42] LABS: CHLORIDE 102 mEq/L (98-107)
[2022-04-22 20:00] VITALS: BP 102/60
[2022-04-22] MEDS: BENZTROPINE MESYLATE 1MG TABLET PO SCH (20:16)
[2022-04-22] MEDS: TRAZODONE HCL 50MG TABLET PO SCH (20:16)
[2022-04-22 23:30] VITALS: BP 114/71
[2022-04-23] MEDS: VANCOMYCIN 1.25GM PMX (XELLIA) 250 ML IV SCH (05:47)
[2022-04-23 08:00] VITALS: BP 137/77
[2022-04-23] MEDS: AMLODIPINE 10MG TABLET PO SCH (08:21)
[2022-04-23] MEDS: FLUOXETINE HCL 10 MG CAPSULE PO SCH (08:21)
[2022-04-23] MEDS: HYDROCODONE/ACETAMINOPHEN 10/325MG TABLET PO PRN ×2 (08:21→15:30)
[2022-04-23] MEDS: HYDRALAZINE HCL 100MG TABLET PO SCH ×2 (08:22→21:00)
[2022-04-23] MEDS: HALOPERIDOL 2MG TABLET PO SCH ×2 (08:22→20:50)
[2022-04-23] MEDS: LOSARTAN POTASSIUM 50 MG TABLET PO SCH ×2 (08:22→15:30)
[2022-04-23] MEDS: NYSTATIN 100,000 UNITS/GM OINT 15GM TOP SCH ×2 (08:29→20:25)
[2022-04-23 12:00] VITALS: BP 119/80
[2022-04-23] MEDS: LORAZEPAM 1MG TABLET PO PRN (12:16)
[2022-04-23 16:00] VITALS: BP 100/60
[2022-04-23 20:00] VITALS: BP 96/60
[2022-04-23] MEDS: BENZTROPINE MESYLATE 1MG TABLET PO SCH (20:25)
[2022-04-23] MEDS: TRAZODONE HCL 50MG TABLET PO SCH (20:25)
[2022-04-24] VITALS: BP 104/66
[2022-04-24] MEDS: VANCOMYCIN 1.25GM PMX (XELLIA) 250 ML IV SCH ×2 (00:14→18:11)
[2022-04-24 04:00] VITALS: BP 103/68
[2022-04-24] MEDS: HYDROCODONE/ACETAMINOPHEN 10/325MG TABLET PO PRN ×3 (05:49→20:02)
[2022-04-24 08:00] VITALS: BP 122/80
[2022-04-24] MEDS: FLUOXETINE HCL 10 MG CAPSULE PO SCH (08:19)
[2022-04-24] MEDS: AMLODIPINE 10MG TABLET PO SCH (08:20)
[2022-04-24] MEDS: LOSARTAN POTASSIUM 50 MG TABLET PO SCH ×2 (08:20→15:31)
[2022-04-24] MEDS: HALOPERIDOL 2MG TABLET PO SCH ×2 (08:20→21:16)
[2022-04-24] MEDS: HYDRALAZINE HCL 100MG TABLET PO SCH ×2 (08:20→21:17)
[2022-04-24] MEDS: NYSTATIN 100,000 UNITS/GM OINT 15GM TOP SCH ×2 (08:50→21:24)
[2022-04-24 12:00] VITALS: BP 108/66
[2022-04-24 15:31] VITALS: BP 96/61
[2022-04-24] MEDS: LORAZEPAM 1MG TABLET PO PRN (17:09)
[2022-04-24 20:00] VITALS: BP 107/65
[2022-04-24] MEDS: BENZTROPINE MESYLATE 1MG TABLET PO SCH (21:15)
[2022-04-24] MEDS: TRAZODONE HCL 50MG TABLET PO SCH (21:16)
[2022-04-25] VITALS: BP 108/61
[2022-04-25 04:00] VITALS: BP 109/69
[2022-04-25] MEDS: HYDROCODONE/ACETAMINOPHEN 10/325MG TABLET PO PRN ×3 (05:31→20:25)
[2022-04-25 08:00] VITALS: BP 114/70
[2022-04-25] MEDS: LOSARTAN POTASSIUM 50 MG TABLET PO SCH ×2 (08:37→16:56)
[2022-04-25] MEDS: HALOPERIDOL 2MG TABLET PO SCH ×2 (08:38→21:39)
[2022-04-25] MEDS: FLUOXETINE HCL 10 MG CAPSULE PO SCH (08:38)
[2022-04-25] MEDS: LORAZEPAM 1MG TABLET PO PRN (08:38)
[2022-04-25] MEDS: AMLODIPINE 10MG TABLET PO SCH (08:38)
[2022-04-25] MEDS: HYDRALAZINE HCL 100MG TABLET PO SCH ×2 (08:39→21:40)
[2022-04-25] MEDS: MENTHOL/LANOLIN/CALAMINE/ZN OX OINT 71GM TOP PRN (08:40)
[2022-04-25] MEDS: NYSTATIN 100,000 UNITS/GM OINT 15GM TOP SCH ×2 (08:40→21:46)
[2022-04-25 12:00] VITALS: BP 106/66
[2022-04-25] MEDS: VANCOMYCIN 1.25GM PMX (XELLIA) 250 ML IV SCH (12:18)
[2022-04-25 16:00] VITALS: BP 110/60
[2022-04-25 20:00] VITALS: BP 111/68
[2022-04-25] MEDS ORDERED: NALOXONE HCL 0.4MG/ML VIAL IV PRN (20:15)
[2022-04-25] MEDS: TRAZODONE HCL 50MG TABLET PO SCH (21:39)
[2022-04-25] MEDS: BENZTROPINE MESYLATE 1MG TABLET PO SCH (21:40)
[2022-04-26] VITALS: BP 116/74
[2022-04-26 04:00] VITALS: BP 118/64
[2022-04-26] MEDS: HYDROCODONE/ACETAMINOPHEN 10/325MG TABLET PO PRN ×3 (04:44→19:01)
[2022-04-26] MEDS: VANCOMYCIN 1.25GM PMX (XELLIA) 250 ML IV SCH (05:49)
[2022-04-26 08:00] VITALS: BP 113/66
[2022-04-26] MEDS: HYDRALAZINE HCL 100MG TABLET PO SCH ×2 (08:26→20:58)
[2022-04-26] MEDS: AMLODIPINE 10MG TABLET PO SCH (08:27)
[2022-04-26] MEDS: HALOPERIDOL 2MG TABLET PO SCH ×2 (08:27→20:57)
[2022-04-26] MEDS: LOSARTAN POTASSIUM 50 MG TABLET PO SCH ×2 (08:27→17:04)
[2022-04-26] MEDS: FLUOXETINE HCL 20MG CAPSULE PO SCH (08:27)
[2022-04-26] MEDS: NYSTATIN 100,000 UNITS/GM OINT 15GM TOP SCH ×2 (08:30→21:08)
[2022-04-26] MEDS: MENTHOL/LANOLIN/CALAMINE/ZN OX OINT 71GM TOP PRN (08:30)
[2022-04-26 12:00] VITALS: BP 115/63
[2022-04-26] MEDS: LORAZEPAM 1MG TABLET PO PRN (14:59)
[2022-04-26 16:00] VITALS: BP 113/67
[2022-04-26] MEDS: TRAZODONE HCL 50MG TABLET PO SCH (20:57)
[2022-04-26] MEDS: BENZTROPINE MESYLATE 1MG TABLET PO SCH (20:57)
[2022-04-27] VITALS: BP 114/68
[2022-04-27] MEDS: VANCOMYCIN 1.25GM PMX (XELLIA) 250 ML IV SCH ×2 (00:17→18:15)
[2022-04-27] MEDS: HYDROCODONE/ACETAMINOPHEN 10/325MG TABLET PO PRN ×4 (04:33→22:10)
[2022-04-27 08:00] VITALS: BP 116/63
[2022-04-27] MEDS: HYDRALAZINE HCL 100MG TABLET PO SCH ×2 (08:49→20:48)
[2022-04-27] MEDS: AMLODIPINE 10MG TABLET PO SCH (08:49)
[2022-04-27] MEDS: LOSARTAN POTASSIUM 50 MG TABLET PO SCH ×2 (08:49→17:00)
[2022-04-27] MEDS: HALOPERIDOL 2MG TABLET PO SCH ×2 (08:49→20:48)
[2022-04-27] MEDS: FLUOXETINE HCL 20MG CAPSULE PO SCH (08:49)
[2022-04-27] MEDS: NYSTATIN 100,000 UNITS/GM OINT 15GM TOP SCH ×2 (09:00→20:49)
[2022-04-27 12:00] VITALS: BP 112/68
[2022-04-27] MEDS: LORAZEPAM 1MG TABLET PO PRN (13:31)
[2022-04-27 16:04] VITALS: BP 111/71
[2022-04-27] MEDS: MENTHOL/LANOLIN/CALAMINE/ZN OX OINT 71GM TOP PRN (18:26)
[2022-04-27 19:49] VITALS: BP 129/71
[2022-04-27] MEDS: TRAZODONE HCL 50MG TABLET PO SCH (20:48)
[2022-04-27] MEDS: BENZTROPINE MESYLATE 1MG TABLET PO SCH (20:48)
[2022-04-27 23:35] VITALS: BP 122/68
[2022-04-28 04:00] VITALS: BP 115/65
[2022-04-28] MEDS: HYDROCODONE/ACETAMINOPHEN 10/325MG TABLET PO PRN ×3 (07:10→19:01)
[2022-04-28 08:00] VITALS: BP 117/70
[2022-04-28] MEDS: NYSTATIN 100,000 UNITS/GM OINT 15GM TOP SCH ×2 (09:00→21:30)
[2022-04-28] MEDS: LORAZEPAM 1MG TABLET PO PRN ×2 (09:18→20:53)
[2022-04-28] MEDS: HALOPERIDOL 2MG TABLET PO SCH ×2 (09:18→20:54)
[2022-04-28] MEDS: FLUOXETINE HCL 20MG CAPSULE PO SCH (09:18)
[2022-04-28] MEDS: HYDRALAZINE HCL 100MG TABLET PO SCH ×2 (09:18→20:54)
[2022-04-28] MEDS: LOSARTAN POTASSIUM 50 MG TABLET PO SCH ×2 (09:18→17:55)
[2022-04-28] MEDS: AMLODIPINE 10MG TABLET PO SCH (09:19)
[2022-04-28 12:00] VITALS: BP 122/72
[2022-04-28] MEDS: VANCOMYCIN 1.25GM PMX (XELLIA) 250 ML IV SCH (14:07)
[2022-04-28 16:00] VITALS: BP 125/88
[2022-04-28 20:00] VITALS: BP 111/70
[2022-04-28] MEDS: BENZTROPINE MESYLATE 1MG TABLET PO SCH (20:53)
[2022-04-28] MEDS: TRAZODONE HCL 50MG TABLET PO SCH (20:54)
[2022-04-29] VITALS: BP 116/72
[2022-04-29] MEDS: HYDROCODONE/ACETAMINOPHEN 10/325MG TABLET PO PRN ×3 (02:55→17:58)
[2022-04-29 04:00] VITALS: BP 102/71
[2022-04-29] MEDS: VANCOMYCIN 1.25GM PMX (XELLIA) 250 ML IV SCH ×2 (06:51→23:25)
[2022-04-29] MEDS: LORAZEPAM 1MG TABLET PO PRN ×2 (07:50→16:16)
[2022-04-29 08:00] VITALS: BP 111/74
[2022-04-29] MEDS: AMLODIPINE 10MG TABLET PO SCH (08:33)
[2022-04-29] MEDS: HYDRALAZINE HCL 100MG TABLET PO SCH ×2 (08:34→20:32)
[2022-04-29] MEDS: LOSARTAN POTASSIUM 50 MG TABLET PO SCH ×2 (08:34→16:16)
[2022-04-29] MEDS: FLUOXETINE HCL 20MG CAPSULE PO SCH (08:34)
[2022-04-29] MEDS: HALOPERIDOL 2MG TABLET PO SCH ×2 (08:34→20:33)
[2022-04-29] MEDS: NYSTATIN 100,000 UNITS/GM OINT 15GM TOP SCH ×2 (08:50→20:48)
[2022-04-29 12:00] VITALS: BP 105/70
[2022-04-29 16:04] VITALS: BP 109/65
[2022-04-29 20:00] VITALS: BP 106/68
[2022-04-29] MEDS: TRAZODONE HCL 50MG TABLET PO SCH (20:32)
[2022-04-29] MEDS: BENZTROPINE MESYLATE 1MG TABLET PO SCH (20:33)
[2022-04-30] VITALS: BP 110/66
[2022-04-30 04:00] VITALS: BP 106/62
[2022-04-30 08:00] VITALS: BP 121/79
[2022-04-30] MEDS: FLUOXETINE HCL 20MG CAPSULE PO SCH (09:08)
[2022-04-30] MEDS: AMLODIPINE 10MG TABLET PO SCH (09:08)
[2022-04-30] MEDS: LOSARTAN POTASSIUM 50 MG TABLET PO SCH ×2 (09:08→17:03)
[2022-04-30] MEDS: HALOPERIDOL 2MG TABLET PO SCH ×2 (09:09→21:00)
[2022-04-30] MEDS: HYDRALAZINE HCL 100MG TABLET PO SCH ×2 (09:09→20:49)
[2022-04-30] MEDS: NYSTATIN 100,000 UNITS/GM OINT 15GM TOP SCH ×2 (09:09→21:00)
[2022-04-30] MEDS: HYDROCODONE/ACETAMINOPHEN 10/325MG TABLET PO PRN ×2 (10:33→17:03)
[2022-04-30 12:00] VITALS: BP 109/65
[2022-04-30 12:39] LABS: CHLORIDE 106 mEq/L (98-107)
[2022-04-30 16:00] VITALS: BP 115/68
[2022-04-30] MEDS: LORAZEPAM 1MG TABLET PO PRN (16:16)
[2022-04-30] MEDS: VANCOMYCIN 1.25GM PMX (XELLIA) 250 ML IV SCH (17:03)
[2022-04-30] MEDS: GABAPENTIN 300MG CAPSULE PO SCH ×2 (17:29→20:46)
[2022-04-30 20:05] VITALS: BP 126/64
[2022-04-30] MEDS: TRAZODONE HCL 50MG TABLET PO SCH (20:47)
[2022-04-30] MEDS: BENZTROPINE MESYLATE 1MG TABLET PO SCH (20:47)
[2022-05-01] VITALS: BP 126/66
[2022-05-01 04:00] VITALS: BP 116/46
[2022-05-01 08:00] VITALS: BP 121/81
[2022-05-01] MEDS: NYSTATIN 100,000 UNITS/GM OINT 15GM TOP SCH ×2 (09:00→20:30)
[2022-05-01] MEDS: FLUOXETINE HCL 20MG CAPSULE PO SCH (09:33)
[2022-05-01] MEDS: LOSARTAN POTASSIUM 50 MG TABLET PO SCH (09:36)
[2022-05-01] MEDS: AMLODIPINE 10MG TABLET PO SCH (09:36)
[2022-05-01] MEDS: HYDRALAZINE HCL 100MG TABLET PO SCH ×2 (09:37→20:29)
[2022-05-01] MEDS: GABAPENTIN 300MG CAPSULE PO SCH ×3 (09:39→21:22)
[2022-05-01] MEDS: HALOPERIDOL 2MG TABLET PO SCH ×2 (09:40→20:30)
[2022-05-01] MEDS: LORAZEPAM 1MG TABLET PO PRN (10:46)
[2022-05-01 12:00] VITALS: BP 128/78
[2022-05-01] MEDS: VANCOMYCIN 1.25GM PMX (XELLIA) 250 ML IV SCH (13:43)
[2022-05-01] MEDS: HYDROCODONE/ACETAMINOPHEN 10/325MG TABLET PO PRN ×2 (13:43→20:29)
[2022-05-01 16:00] VITALS: BP 125/82
[2022-05-01 19:51] VITALS: BP 129/56
[2022-05-01] MEDS: TRAZODONE HCL 50MG TABLET PO SCH (20:29)
[2022-05-01] MEDS: BENZTROPINE MESYLATE 1MG TABLET PO SCH (20:29)
[2022-05-01] MEDS: MENTHOL/LANOLIN/CALAMINE/ZN OX OINT 71GM TOP PRN (20:31)
[2022-05-02] MEDS: HYDROCODONE/ACETAMINOPHEN 10/325MG TABLET PO PRN ×3 (02:40→18:34)
[2022-05-02 04:00] VITALS: BP 125/76
[2022-05-02] MEDS: GABAPENTIN 300MG CAPSULE PO SCH ×3 (05:33→22:00)
[2022-05-02] MEDS: VANCOMYCIN 1.25GM PMX (XELLIA) 250 ML IV SCH (05:33)
[2022-05-02 08:00] VITALS: BP 110/66
[2022-05-02] MEDS: HALOPERIDOL 2MG TABLET PO SCH ×2 (09:00→21:00)
[2022-05-02] MEDS: HYDRALAZINE HCL 100MG TABLET PO SCH ×2 (09:00→19:53)
[2022-05-02] MEDS: FLUOXETINE HCL 20MG CAPSULE PO SCH (09:26)
[2022-05-02] MEDS: AMLODIPINE 10MG TABLET PO SCH (09:26)
[2022-05-02] MEDS: NYSTATIN 100,000 UNITS/GM OINT 15GM TOP SCH ×2 (09:28→22:06)
[2022-05-02] MEDS ORDERED: NALOXONE HCL 0.4MG/ML VIAL IV PRN (11:45)
[2022-05-02 12:00] VITALS: BP 107/70
[2022-05-02] MEDS: LORAZEPAM 1MG TABLET PO PRN (13:39)
[2022-05-02 15:36] LABS: BASOPHILS % 1.4 % (0.0-2.0); EOSINOPHILS % 4.4 % (0.0-5.0); HEMATOCRIT. 28.8 % (42.0-52.0); HEMOGLOBIN. 9.8 g/dL (14.0-18.0); LYMPHOCYTES % 23.8 % (20.0-50.0); MEAN CORPUSCULAR HEMOGLOBIN 30.6 pg (28.0-32.0); MEAN CORPUSCULAR VOLUME 89.9 fL (80.0-94.0); MONOCYTES % 14.7 % (2.0-8.0); NEUTROPHILS % 55.7 % (40.0-76.0); RED CELL DISTRIBUTION WIDTH 16.5 % (11.6-14.6)
[2022-05-02 15:43] LABS: CHLORIDE 106 mEq/L (98-107)
[2022-05-02 16:00] VITALS: BP 105/78
[2022-05-02 17:33] LABS: MEAN PLATELET VOLUME 8.4 fl (7.4-10.4); PLATELET 183 x1000/uL (130-400)
[2022-05-02] MEDS: TRAZODONE HCL 50MG TABLET PO SCH (19:52)
[2022-05-02] MEDS: BENZTROPINE MESYLATE 1MG TABLET PO SCH (19:53)
[2022-05-02 20:00] VITALS: BP 107/62
[2022-05-03] MEDS: VANCOMYCIN 1.25GM PMX (XELLIA) 250 ML IV SCH ×2 (00:57→17:38)
[2022-05-03 04:00] VITALS: BP 153/86
[2022-05-03] MEDS: GABAPENTIN 300MG CAPSULE PO SCH ×3 (06:44→21:43)
[2022-05-03] MEDS: FLUOXETINE HCL 20MG CAPSULE PO SCH (08:29)
[2022-05-03] MEDS: NYSTATIN 100,000 UNITS/GM OINT 15GM TOP SCH ×2 (08:29→21:48)
[2022-05-03] MEDS: HYDRALAZINE HCL 100MG TABLET PO SCH ×2 (08:29→21:45)
[2022-05-03] MEDS: HYDROCODONE/ACETAMINOPHEN 10/325MG TABLET PO PRN ×3 (08:34→22:06)
[2022-05-03] MEDS: MENTHOL/LANOLIN/CALAMINE/ZN OX OINT 71GM TOP PRN (08:36)
[2022-05-03] MEDS: HALOPERIDOL 2MG TABLET PO SCH ×2 (09:18→21:46)
[2022-05-03] MEDS: LORAZEPAM 1MG TABLET PO PRN ×2 (10:24→17:38)
[2022-05-03 16:00] VITALS: BP 116/67
[2022-05-03 20:00] VITALS: BP 131/83
[2022-05-03] MEDS: BENZTROPINE MESYLATE 1MG TABLET PO SCH (21:45)
[2022-05-03] MEDS: TRAZODONE HCL 50MG TABLET PO SCH (21:46)
[2022-05-04] VITALS: BP 113/69
[2022-05-04 04:00] VITALS: BP 125/71
[2022-05-04] MEDS: GABAPENTIN 300MG CAPSULE PO SCH ×3 (05:49→21:22)
[2022-05-04] MEDS: HYDROCODONE/ACETAMINOPHEN 10/325MG TABLET PO PRN ×3 (05:50→21:22)
[2022-05-04 08:00] VITALS: BP 111/74
[2022-05-04] MEDS: FLUOXETINE HCL 20MG CAPSULE PO SCH (08:56)
[2022-05-04] MEDS: HALOPERIDOL 2MG TABLET PO SCH ×2 (08:56→21:23)
[2022-05-04] MEDS: NYSTATIN 100,000 UNITS/GM OINT 15GM TOP SCH ×2 (08:59→21:25)
[2022-05-04] MEDS: LORAZEPAM 1MG TABLET PO PRN ×2 (08:59→21:22)
[2022-05-04 12:00] VITALS: BP 132/64
[2022-05-04] MEDS: VANCOMYCIN 1.25GM PMX (XELLIA) 250 ML IV SCH (12:52)
[2022-05-04 16:00] VITALS: BP 118/76
[2022-05-04 20:00] VITALS: BP 118/76
[2022-05-04] MEDS: BENZTROPINE MESYLATE 1MG TABLET PO SCH (21:22)
[2022-05-04] MEDS: TRAZODONE HCL 50MG TABLET PO SCH (21:23)
[2022-05-05] VITALS: BP 134/82
[2022-05-05 04:00] VITALS: BP 117/73
[2022-05-05] MEDS: VANCOMYCIN 1.25GM PMX (XELLIA) 250 ML IV SCH (06:31)
[2022-05-05] MEDS: GABAPENTIN 300MG CAPSULE PO SCH ×3 (06:52→22:18)
[2022-05-05 08:00] VITALS: BP_SYST 125; BP_SYST 149; BP_DIAS 76; BP_DIAS 83
[2022-05-05] MEDS: FLUOXETINE HCL 20MG CAPSULE PO SCH (08:20)
[2022-05-05] MEDS: HALOPERIDOL 2MG TABLET PO SCH ×2 (08:21→20:43)
[2022-05-05] MEDS: NYSTATIN 100,000 UNITS/GM OINT 15GM TOP SCH ×2 (08:26→21:00)
[2022-05-05] MEDS: HYDROCODONE/ACETAMINOPHEN 10/325MG TABLET PO PRN ×3 (09:47→22:25)
[2022-05-05 12:00] VITALS: BP 125/76
[2022-05-05 16:00] VITALS: BP 121/73
[2022-05-05] MEDS: LORAZEPAM 1MG TABLET PO PRN (20:42)
[2022-05-05] MEDS: BENZTROPINE MESYLATE 1MG TABLET PO SCH (20:42)
[2022-05-05] MEDS: TRAZODONE HCL 50MG TABLET PO SCH (20:43)
[2022-05-06] VITALS: BP 124/81
[2022-05-06] MEDS: VANCOMYCIN 1.25GM PMX (XELLIA) 250 ML IV SCH ×2 (01:18→17:41)
[2022-05-06 04:00] VITALS: BP 110/69
[2022-05-06 06:07] LABS: CHLORIDE 104 mEq/L (98-107)
[2022-05-06] MEDS: GABAPENTIN 300MG CAPSULE PO SCH ×3 (07:11→21:39)
[2022-05-06] MEDS: HYDROCODONE/ACETAMINOPHEN 10/325MG TABLET PO PRN ×2 (07:12→18:27)
[2022-05-06 08:00] VITALS: BP 123/77
[2022-05-06] MEDS: FLUOXETINE HCL 20MG CAPSULE PO SCH (09:12)
[2022-05-06] MEDS: HALOPERIDOL 2MG TABLET PO SCH ×2 (09:12→21:40)
[2022-05-06] MEDS: LORAZEPAM 1MG TABLET PO PRN ×4 (09:13→21:43)
[2022-05-06 12:00] VITALS: BP 127/80
[2022-05-06] MEDS: NYSTATIN 100,000 UNITS/GM OINT 15GM TOP SCH ×2 (13:59→21:48)
[2022-05-06 20:00] VITALS: BP 122/77
[2022-05-06] MEDS: BENZTROPINE MESYLATE 1MG TABLET PO SCH (21:39)
[2022-05-06] MEDS: TRAZODONE HCL 50MG TABLET PO SCH (21:39)
[2022-05-07] VITALS: BP 144/88
[2022-05-07] MEDS: HYDROCODONE/ACETAMINOPHEN 10/325MG TABLET PO PRN ×3 (02:52→17:48)
[2022-05-07 04:00] VITALS: BP 119/76
[2022-05-07] MEDS: GABAPENTIN 300MG CAPSULE PO SCH ×2 (05:35→14:11)
[2022-05-07 08:00] VITALS: BP 124/84
[2022-05-07] MEDS: FLUOXETINE HCL 20MG CAPSULE PO SCH (09:43)
[2022-05-07] MEDS: NYSTATIN 100,000 UNITS/GM OINT 15GM TOP SCH ×2 (09:50→20:35)
[2022-05-07] MEDS: MENTHOL/LANOLIN/CALAMINE/ZN OX OINT 71GM TOP PRN (10:10)
[2022-05-07 12:00] VITALS: BP 123/78
[2022-05-07] MEDS: VANCOMYCIN 1.25GM PMX (XELLIA) 250 ML IV SCH (12:40)
[2022-05-07] MEDS: LORAZEPAM 1MG TABLET PO PRN ×2 (14:11→20:34)
[2022-05-07 16:00] VITALS: BP 131/74
[2022-05-07 20:00] VITALS: BP 138/91
[2022-05-07] MEDS: TRAZODONE HCL 50MG TABLET PO SCH (20:34)
[2022-05-07] MEDS: HALOPERIDOL 0.5MG TABLET PO SCH (20:34)
[2022-05-08] MEDS: GABAPENTIN 300MG CAPSULE PO SCH ×4 (01:08→21:23)
[2022-05-08] MEDS: VANCOMYCIN 1.25GM PMX (XELLIA) 250 ML IV SCH ×2 (07:01→23:47)
[2022-05-08 08:00] VITALS: BP 130/74
[2022-05-08] MEDS: HALOPERIDOL 0.5MG TABLET PO SCH ×2 (09:09→20:14)
[2022-05-08] MEDS: FLUOXETINE HCL 20MG CAPSULE PO SCH (09:09)
[2022-05-08] MEDS: NYSTATIN 100,000 UNITS/GM OINT 15GM TOP SCH ×2 (09:10→20:15)
[2022-05-08] MEDS: HYDROCODONE/ACETAMINOPHEN 10/325MG TABLET PO PRN ×2 (10:01→19:40)
[2022-05-08 12:01] VITALS: BP 120/87
[2022-05-08] MEDS: LORAZEPAM 1MG TABLET PO PRN (13:38)
[2022-05-08 16:00] VITALS: BP 118/75
[2022-05-08 20:00] VITALS: BP 139/86
[2022-05-08] MEDS: TRAZODONE HCL 50MG TABLET PO SCH (20:15)
[2022-05-09 04:00] VITALS: BP 129/85
[2022-05-09] MEDS: GABAPENTIN 300MG CAPSULE PO SCH ×3 (05:16→21:13)
[2022-05-09] MEDS: LORAZEPAM 1MG TABLET PO PRN ×3 (06:14→21:20)
[2022-05-09 08:00] VITALS: BP 153/83
[2022-05-09] MEDS: NYSTATIN 100,000 UNITS/GM OINT 15GM TOP SCH ×2 (09:07→21:13)
[2022-05-09] MEDS: HALOPERIDOL 0.5MG TABLET PO SCH ×2 (09:07→21:13)
[2022-05-09] MEDS: FLUOXETINE HCL 20MG CAPSULE PO SCH (09:07)
[2022-05-09] MEDS: HYDROCODONE/ACETAMINOPHEN 10/325MG TABLET PO PRN ×2 (10:54→17:16)
[2022-05-09 12:00] VITALS: BP 134/83
[2022-05-09 15:57] VITALS: BP 121/80
[2022-05-09] MEDS: VANCOMYCIN 1.25GM PMX (XELLIA) 250 ML IV SCH (17:16)
[2022-05-09 20:35] VITALS: BP 138/85
[2022-05-09] MEDS: TRAZODONE HCL 50MG TABLET PO SCH (21:12)
[2022-05-09] MEDS ORDERED: NALOXONE HCL 0.4MG/ML VIAL IV PRN (22:45)
[2022-05-10] VITALS (7 sets, daily range): BP systolic 117–145; BP diastolic 70–86
[2022-05-10] MEDS: GABAPENTIN 300MG CAPSULE PO SCH ×3 (05:55→21:05)
[2022-05-10] MEDS: HYDROCODONE/ACETAMINOPHEN 10/325MG TABLET PO PRN ×3 (05:56→22:03)
[2022-05-10] MEDS: FLUOXETINE HCL 20MG CAPSULE PO SCH (08:46)
[2022-05-10] MEDS: HALOPERIDOL 0.5MG TABLET PO SCH ×2 (08:46→21:05)
[2022-05-10] MEDS: LORAZEPAM 1MG TABLET PO PRN ×2 (09:03→16:23)
[2022-05-10] MEDS: VANCOMYCIN 1.25GM PMX (XELLIA) 250 ML IV SCH (14:15)
[2022-05-10] MEDS: NYSTATIN 100,000 UNITS/GM OINT 15GM TOP SCH ×2 (14:15→21:00)
[2022-05-10] MEDS: TRAZODONE HCL 50MG TABLET PO SCH (21:05)
[2022-05-11] VITALS: BP 130/80
[2022-05-11 04:00] VITALS: BP 147/82
[2022-05-11] MEDS: GABAPENTIN 300MG CAPSULE PO SCH ×3 (06:34→21:24)
[2022-05-11] MEDS: LORAZEPAM 1MG TABLET PO PRN ×2 (06:35→13:48)
[2022-05-11 08:00] VITALS: BP 138/79
[2022-05-11] MEDS: HYDROCODONE/ACETAMINOPHEN 10/325MG TABLET PO PRN ×3 (09:58→22:35)
[2022-05-11] MEDS: FLUOXETINE HCL 20MG CAPSULE PO SCH (09:58)
[2022-05-11] MEDS: HALOPERIDOL 0.5MG TABLET PO SCH ×2 (09:59→21:24)
[2022-05-11 12:00] VITALS: BP 150/85
[2022-05-11 16:00] VITALS: BP 155/80
[2022-05-11] MEDS: TRAZODONE HCL 50MG TABLET PO SCH (21:25)
[2022-05-12] VITALS: BP 130/62
[2022-05-12] MEDS: LORAZEPAM 1MG TABLET PO PRN (06:49)
[2022-05-12] MEDS: GABAPENTIN 300MG CAPSULE PO SCH ×3 (06:49→21:00)
[2022-05-12 08:00] VITALS: BP 140/86
[2022-05-12] MEDS: FLUOXETINE HCL 20MG CAPSULE PO SCH (09:43)
[2022-05-12] MEDS: HYDROCODONE/ACETAMINOPHEN 10/325MG TABLET PO PRN ×3 (09:45→22:04)
[2022-05-12] MEDS: HALOPERIDOL 2MG TABLET PO SCH ×2 (11:00→21:00)
[2022-05-12 12:00] VITALS: BP 106/76
[2022-05-12 16:00] VITALS: BP 122/77
[2022-05-12 16:17] LABS: BASOPHILS % 1.1 % (0.0-2.0); HEMATOCRIT. 31.7 % (42.0-52.0); MEAN CORPUSCULAR HEMOGLOBIN 30.9 pg (28.0-32.0); MEAN CORPUSCULAR VOLUME 88.7 fL (80.0-94.0); MEAN PLATELET VOLUME 7.7 fl (7.4-10.4); MONOCYTES % 12.8 % (2.0-8.0); NEUTROPHILS % 61.1 % (40.0-76.0); PLATELET 155 x1000/uL (130-400); RED BLOOD CELL COUNT 3.58 mill/uL (4.7-6.1); RED CELL DISTRIBUTION WIDTH 15.6 % (11.6-14.6)
[2022-05-12 16:29] LABS: CHLORIDE 104 mEq/L (98-107)
[2022-05-12] MEDS ORDERED: OLANZAPINE 5MG TABLET PO SCH (17:00)
[2022-05-12 20:00] VITALS: BP 129/73
[2022-05-12] MEDS: TRAZODONE HCL 50MG TABLET PO SCH (20:57)
[2022-05-13] VITALS: BP 123/74
[2022-05-13] MEDS: GABAPENTIN 300MG CAPSULE PO SCH ×3 (06:14→21:02)
[2022-05-13] MEDS: HYDROCODONE/ACETAMINOPHEN 10/325MG TABLET PO PRN ×3 (06:14→18:23)
[2022-05-13 08:32] VITALS: BP 151/82
[2022-05-13] MEDS: QUETIAPINE FUMARATE 25MG TABLET PO SCH ×2 (09:00→09:26)
[2022-05-13] MEDS: FLUOXETINE HCL 20MG CAPSULE PO SCH (09:26)
[2022-05-13 11:27] VITALS: BP 140/84
[2022-05-13] MEDS ORDERED: HALOPERIDOL 2MG TABLET PO SCH (12:30)
[2022-05-13 15:39] VITALS: BP 161/83
[2022-05-13] MEDS: OLANZAPINE 5MG TABLET PO SCH (16:29)
[2022-05-13 20:00] VITALS: BP 125/80
[2022-05-13] MEDS ORDERED: BENZTROPINE MESYLATE 1 MG/ML 2ML VIAL IM SCH (21:00)
[2022-05-13] MEDS: BENZTROPINE MESYLATE 1MG TABLET PO SCH (21:02)
[2022-05-13] MEDS: TRAZODONE HCL 50MG TABLET PO SCH (21:03)
[2022-05-14] MEDS: HYDROCODONE/ACETAMINOPHEN 10/325MG TABLET PO PRN ×4 (00:55→19:07)
[2022-05-14] MEDS: GABAPENTIN 300MG CAPSULE PO SCH ×3 (05:04→21:23)
[2022-05-14 08:00] VITALS: BP 130/84
[2022-05-14] MEDS: FLUOXETINE HCL 20MG CAPSULE PO SCH (09:58)
[2022-05-14] MEDS: OLANZAPINE 5MG TABLET PO SCH ×2 (09:58→18:04)
[2022-05-14 12:00] VITALS: BP 133/79
[2022-05-14] MEDS: DIPHENHYDRAMINE 25MG CAPSULE PO PRN (18:35)
[2022-05-14 20:28] VITALS: BP 116/71
[2022-05-14] MEDS: HYDROCORTISONE 1% CREAM 30GM TOP SCH (20:55)
[2022-05-14] MEDS: TRAZODONE HCL 50MG TABLET PO SCH (21:23)
[2022-05-14] MEDS: BENZTROPINE MESYLATE 1MG TABLET PO SCH (21:23)
[2022-05-15] VITALS: BP 116/77
[2022-05-15] MEDS: HYDROCODONE/ACETAMINOPHEN 10/325MG TABLET PO PRN ×3 (02:55→17:37)
[2022-05-15] MEDS: DIPHENHYDRAMINE 25MG CAPSULE PO PRN ×3 (03:56→17:43)
[2022-05-15] MEDS: HYDROCORTISONE 1% CREAM 30GM TOP SCH ×6 (03:56→20:08)
[2022-05-15 04:00] VITALS: BP 145/88
[2022-05-15] MEDS: GABAPENTIN 300MG CAPSULE PO SCH ×3 (07:00→21:35)
[2022-05-15 08:00] VITALS: BP 166/91
[2022-05-15] MEDS: FLUOXETINE HCL 20MG CAPSULE PO SCH (08:53)
[2022-05-15] MEDS: OLANZAPINE 5MG TABLET PO SCH ×2 (08:53→17:36)
[2022-05-15 12:00] VITALS: BP 149/85
[2022-05-15 16:00] VITALS: BP 142/80
[2022-05-15 20:00] VITALS: BP 132/78
[2022-05-15] MEDS: TRAZODONE HCL 50MG TABLET PO SCH (20:08)
[2022-05-15] MEDS: BENZTROPINE MESYLATE 1MG TABLET PO SCH (20:08)
[2022-05-16] VITALS: BP 131/82
[2022-05-16] MEDS: HYDROCORTISONE 1% CREAM 30GM TOP SCH ×6 (00:26→20:51)
[2022-05-16 04:00] VITALS: BP 145/98
[2022-05-16] MEDS: GABAPENTIN 300MG CAPSULE PO SCH ×3 (05:11→20:33)
[2022-05-16] MEDS: HYDROCODONE/ACETAMINOPHEN 10/325MG TABLET PO PRN ×4 (05:17→23:43)
[2022-05-16] MEDS: OLANZAPINE 5MG TABLET PO SCH ×2 (08:37→17:22)
[2022-05-16] MEDS: FLUOXETINE HCL 20MG CAPSULE PO SCH (08:37)
[2022-05-16] MEDS: DIPHENHYDRAMINE 25MG CAPSULE PO PRN ×2 (09:53→20:33)
[2022-05-16 12:00] VITALS: BP 143/97
[2022-05-16 16:00] VITALS: BP 137/97
[2022-05-16 20:00] VITALS: BP 135/88
[2022-05-16] MEDS: TRAZODONE HCL 50MG TABLET PO SCH (20:33)
[2022-05-16] MEDS: BENZTROPINE MESYLATE 1MG TABLET PO SCH (20:34)
[2022-05-17] VITALS: BP 162/100
[2022-05-17 04:00] VITALS: BP 165/106
[2022-05-17] MEDS: HYDROCORTISONE 1% CREAM 30GM TOP SCH ×6 (04:00→20:16)
[2022-05-17] MEDS: GABAPENTIN 300MG CAPSULE PO SCH ×3 (05:23→20:15)
[2022-05-17] MEDS: DIPHENHYDRAMINE 25MG CAPSULE PO PRN ×3 (06:06→20:17)
[2022-05-17] MEDS: HYDROCODONE/ACETAMINOPHEN 10/325MG TABLET PO PRN ×3 (06:07→22:20)
[2022-05-17 08:00] VITALS: BP 118/77
[2022-05-17] MEDS: OLANZAPINE 5MG TABLET PO SCH ×2 (09:20→16:45)
[2022-05-17] MEDS: FLUOXETINE HCL 20MG CAPSULE PO SCH (09:20)
[2022-05-17 12:00] VITALS: BP 115/75
[2022-05-17 16:00] VITALS: BP 137/90
[2022-05-17 20:00] VITALS: BP 148/97
[2022-05-17] MEDS: TRAZODONE HCL 50MG TABLET PO SCH (20:15)
[2022-05-17] MEDS: BENZTROPINE MESYLATE 1MG TABLET PO SCH (20:15)
[2022-05-18] VITALS: BP 154/99
[2022-05-18 04:00] VITALS: BP 160/98
[2022-05-18] MEDS: HYDROCORTISONE 1% CREAM 30GM TOP SCH ×6 (04:00→20:00)
[2022-05-18] MEDS: HYDROCODONE/ACETAMINOPHEN 10/325MG TABLET PO PRN ×3 (05:38→17:35)
[2022-05-18] MEDS: GABAPENTIN 300MG CAPSULE PO SCH ×3 (05:38→21:15)
[2022-05-18 08:00] VITALS: BP 157/98
[2022-05-18] MEDS: OLANZAPINE 5MG TABLET PO SCH ×2 (09:34→17:35)
[2022-05-18] MEDS: FLUOXETINE HCL 20MG CAPSULE PO SCH (09:34)
[2022-05-18] MEDS: DIPHENHYDRAMINE 25MG CAPSULE PO PRN ×2 (09:34→21:15)
[2022-05-18] MEDS ORDERED: SILVER NITRATE APPLICATOR STICK TOP NR (11:00)
[2022-05-18 12:00] VITALS: BP 118/69
[2022-05-18 16:00] VITALS: BP 128/83
[2022-05-18 20:00] VITALS: BP 126/70
[2022-05-18] MEDS: BENZTROPINE MESYLATE 1MG TABLET PO SCH (21:15)
[2022-05-18] MEDS: TRAZODONE HCL 50MG TABLET PO SCH (21:34)
[2022-05-19] VITALS: BP 126/70
[2022-05-19] MEDS: HYDROCODONE/ACETAMINOPHEN 10/325MG TABLET PO PRN ×4 (00:03→20:45)
[2022-05-19] MEDS: HYDROCORTISONE 1% CREAM 30GM TOP SCH ×6 (00:05→20:49)
[2022-05-19 04:00] VITALS: BP 132/74
[2022-05-19] MEDS: GABAPENTIN 300MG CAPSULE PO SCH ×3 (06:13→20:48)
[2022-05-19 08:00] VITALS: BP 135/87
[2022-05-19] MEDS: OLANZAPINE 5MG TABLET PO SCH ×2 (09:33→17:39)
[2022-05-19] MEDS: FLUOXETINE HCL 20MG CAPSULE PO SCH (09:33)
[2022-05-19] MEDS: DIPHENHYDRAMINE 25MG CAPSULE PO PRN ×2 (09:42→17:40)
[2022-05-19 12:00] VITALS: BP 133/80
[2022-05-19 16:00] VITALS: BP 135/92
[2022-05-19 20:00] VITALS: BP 132/85
[2022-05-19] MEDS: TRAZODONE HCL 50MG TABLET PO SCH (20:46)
[2022-05-19] MEDS: BENZTROPINE MESYLATE 1MG TABLET PO SCH (20:47)
[2022-05-20] VITALS: BP 157/95
[2022-05-20 04:00] VITALS: BP 152/92
[2022-05-20] MEDS: HYDROCORTISONE 1% CREAM 30GM TOP SCH ×7 (04:00→23:37)
[2022-05-20] MEDS: HYDROCODONE/ACETAMINOPHEN 10/325MG TABLET PO PRN ×3 (05:43→18:55)
[2022-05-20] MEDS: GABAPENTIN 300MG CAPSULE PO SCH ×3 (05:43→21:05)
[2022-05-20] MEDS: OLANZAPINE 5MG TABLET PO SCH ×2 (09:24→17:36)
[2022-05-20] MEDS: FLUOXETINE HCL 20MG CAPSULE PO SCH (09:24)
[2022-05-20 09:51] VITALS: BP 132/88
[2022-05-20] MEDS: DIPHENHYDRAMINE 25MG CAPSULE PO PRN ×2 (09:54→22:04)
[2022-05-20 12:00] VITALS: BP 131/85
[2022-05-20 16:00] VITALS: BP 146/97
[2022-05-20] MEDS: BENZTROPINE MESYLATE 1MG TABLET PO SCH (21:05)
[2022-05-20] MEDS: TRAZODONE HCL 50MG TABLET PO SCH (22:04)
[2022-05-21] VITALS: BP 151/93
[2022-05-21] MEDS: HYDROCODONE/ACETAMINOPHEN 10/325MG TABLET PO PRN ×5 (02:48→21:37)
[2022-05-21 04:00] VITALS: BP 126/80
[2022-05-21] MEDS: HYDROCORTISONE 1% CREAM 30GM TOP SCH ×4 (04:00→17:05)
[2022-05-21] MEDS: GABAPENTIN 300MG CAPSULE PO SCH ×3 (06:10→21:38)
[2022-05-21 08:00] VITALS: BP 130/80
[2022-05-21] MEDS: OLANZAPINE 5MG TABLET PO SCH ×2 (08:43→17:03)
[2022-05-21] MEDS: FLUOXETINE HCL 20MG CAPSULE PO SCH (08:43)
[2022-05-21] MEDS: DIPHENHYDRAMINE 25MG CAPSULE PO PRN (08:46)
[2022-05-21 12:10] VITALS: BP 140/88
[2022-05-21 16:00] VITALS: BP 136/88
[2022-05-21 20:00] VITALS: BP 135/92
[2022-05-21] MEDS ORDERED: TRAZODONE HCL 50MG TABLET PO SCH (21:00)
[2022-05-21] MEDS: TRAZODONE HCL 50MG TABLET PO SCH (21:36)
[2022-05-21] MEDS: BENZTROPINE MESYLATE 1MG TABLET PO SCH (21:37)
[2022-05-22] VITALS: BP 132/72
[2022-05-22 04:00] VITALS: BP 138/82
[2022-05-22] MEDS: HYDROCORTISONE 1% CREAM 30GM TOP SCH ×4 (04:00→08:00)
[2022-05-22] MEDS: GABAPENTIN 300MG CAPSULE PO SCH ×3 (05:43→21:27)
[2022-05-22 08:00] VITALS: BP 169/97
[2022-05-22] MEDS: FLUOXETINE HCL 20MG CAPSULE PO SCH (09:26)
[2022-05-22] MEDS: OLANZAPINE 5MG TABLET PO SCH ×2 (09:26→17:07)
[2022-05-22] MEDS: HYDROCODONE/ACETAMINOPHEN 10/325MG TABLET PO PRN ×2 (09:27→21:41)
[2022-05-22 12:00] VITALS: BP 129/86
[2022-05-22] MEDS ORDERED: OLAN5TAB74 PO (13:49)
[2022-05-22] MEDS ORDERED: FLUO20CA39 PO (13:49)
[2022-05-22] MEDS ORDERED: HYDROCODONE/ACETAMINOPHEN 10/325MG TABLET PO PRN (15:00)
[2022-05-22 16:00] VITALS: BP 124/77
[2022-05-22 20:00] VITALS: BP 127/85
[2022-05-22] MEDS: TRAZODONE HCL 50MG TABLET PO SCH (21:27)
[2022-05-22] MEDS: BENZTROPINE MESYLATE 1MG TABLET PO SCH (21:27)
[2022-05-22] MEDS: DIPHENHYDRAMINE 25MG CAPSULE PO PRN (21:39)
[2022-05-23] VITALS: BP 129/87
[2022-05-23 04:00] VITALS: BP 141/84
[2022-05-23] MEDS: HYDROCORTISONE 1% CREAM 30GM TOP SCH ×5 (04:00→23:04)
[2022-05-23] MEDS: GABAPENTIN 300MG CAPSULE PO SCH ×3 (05:12→21:23)
[2022-05-23] MEDS: HYDROCODONE/ACETAMINOPHEN 10/325MG TABLET PO PRN ×5 (05:30→23:32)
[2022-05-23 08:00] VITALS: BP 143/83
[2022-05-23] MEDS: OLANZAPINE 5MG TABLET PO SCH ×2 (09:41→17:31)
[2022-05-23] MEDS: FLUOXETINE HCL 20MG CAPSULE PO SCH (09:41)
[2022-05-23 12:00] VITALS: BP 118/77
[2022-05-23 16:00] VITALS: BP 129/76
[2022-05-23] MEDS ORDERED: NALOXONE HCL 0.4MG/ML VIAL IV PRN (17:00)
[2022-05-23 20:00] VITALS: BP 137/83
[2022-05-23] MEDS: BENZTROPINE MESYLATE 1MG TABLET PO SCH (21:18)
[2022-05-23] MEDS: DIPHENHYDRAMINE 25MG CAPSULE PO PRN (21:23)
[2022-05-23] MEDS: TRAZODONE HCL 50MG TABLET PO SCH (21:23)
[2022-05-24] VITALS: BP 138/88
[2022-05-24 04:00] VITALS: BP 132/75
[2022-05-24] MEDS: HYDROCORTISONE 1% CREAM 30GM TOP SCH ×7 (04:00→23:39)
[2022-05-24] MEDS: GABAPENTIN 300MG CAPSULE PO SCH ×3 (05:36→21:10)
[2022-05-24] MEDS: HYDROCODONE/ACETAMINOPHEN 10/325MG TABLET PO PRN ×4 (05:36→21:09)
[2022-05-24 08:00] VITALS: BP 134/82
[2022-05-24] MEDS: FLUOXETINE HCL 20MG CAPSULE PO SCH (09:54)
[2022-05-24] MEDS: OLANZAPINE 5MG TABLET PO SCH ×2 (09:55→17:31)
[2022-05-24 12:00] VITALS: BP 133/54
[2022-05-24 16:00] VITALS: BP 128/77
[2022-05-24] MEDS: DIPHENHYDRAMINE 25MG CAPSULE PO PRN (17:31)
[2022-05-24 20:00] VITALS: BP 130/80
[2022-05-24] MEDS: TRAZODONE HCL 50MG TABLET PO SCH (21:10)
[2022-05-24] MEDS: BENZTROPINE MESYLATE 1MG TABLET PO SCH (21:10)
[2022-05-25] VITALS: BP 113/82
[2022-05-25] MEDS: HYDROCODONE/ACETAMINOPHEN 10/325MG TABLET PO PRN ×5 (02:10→21:14)
[2022-05-25 04:00] VITALS: BP 134/85
[2022-05-25] MEDS: HYDROCORTISONE 1% CREAM 30GM TOP SCH ×5 (06:41→21:19)
[2022-05-25] MEDS: GABAPENTIN 300MG CAPSULE PO SCH ×3 (06:41→21:15)
[2022-05-25] MEDS: DIPHENHYDRAMINE 25MG CAPSULE PO PRN ×2 (06:43→21:14)
[2022-05-25 08:00] VITALS: BP 148/87
[2022-05-25] MEDS: OLANZAPINE 5MG TABLET PO SCH ×2 (09:04→17:05)
[2022-05-25] MEDS ORDERED: FLUOXETINE HCL 20MG CAPSULE PO ONE (11:30)
[2022-05-25 12:00] VITALS: BP 142/67
[2022-05-25] MEDS ORDERED: FLUOXETINE HCL 20MG CAPSULE PO SCH (13:15)
[2022-05-25] MEDS: BENZTROPINE MESYLATE 1MG TABLET PO SCH (21:14)
[2022-05-25] MEDS: TRAZODONE HCL 50MG TABLET PO SCH (21:15)
[2022-05-26] MEDS: HYDROCORTISONE 1% CREAM 30GM TOP SCH ×6 (00:37→20:36)
[2022-05-26] MEDS: GABAPENTIN 300MG CAPSULE PO SCH ×3 (05:21→20:39)
[2022-05-26] MEDS: HYDROCODONE/ACETAMINOPHEN 10/325MG TABLET PO PRN ×3 (05:27→20:38)
[2022-05-26 08:00] VITALS: BP 136/86
[2022-05-26] MEDS: OLANZAPINE 5MG TABLET PO SCH ×2 (08:16→16:50)
[2022-05-26] MEDS: DIPHENHYDRAMINE 25MG CAPSULE PO PRN ×2 (08:20→22:14)
[2022-05-26 12:00] VITALS: BP 132/85
[2022-05-26 16:00] VITALS: BP 121/87
[2022-05-26 20:00] VITALS: BP 131/86
[2022-05-26] MEDS: TRAZODONE HCL 50MG TABLET PO SCH (20:39)
[2022-05-26] MEDS: BENZTROPINE MESYLATE 1MG TABLET PO SCH (20:39)
[2022-05-27] VITALS: BP 128/82
[2022-05-27] MEDS: HYDROCORTISONE 1% CREAM 30GM TOP SCH ×6 (04:00→20:00)
[2022-05-27] MEDS: GABAPENTIN 300MG CAPSULE PO SCH ×3 (05:44→21:19)
[2022-05-27] MEDS: HYDROCODONE/ACETAMINOPHEN 10/325MG TABLET PO PRN ×4 (05:44→21:46)
[2022-05-27 08:00] VITALS: BP 145/85
[2022-05-27] MEDS: OLANZAPINE 5MG TABLET PO SCH ×2 (09:55→17:37)
[2022-05-27 12:00] VITALS: BP 129/83
[2022-05-27] MEDS: DIPHENHYDRAMINE 25MG CAPSULE PO PRN ×2 (13:31→21:19)
[2022-05-27 20:00] VITALS: BP 121/78
[2022-05-27] MEDS: BENZTROPINE MESYLATE 1MG TABLET PO SCH (21:19)
[2022-05-27] MEDS: TRAZODONE HCL 50MG TABLET PO SCH (21:19)
[2022-05-28] VITALS: BP 132/81
[2022-05-28] MEDS: HYDROCORTISONE 1% CREAM 30GM TOP SCH ×5 (04:00→15:22)
[2022-05-28] MEDS: GABAPENTIN 300MG CAPSULE PO SCH ×2 (05:54→14:42)
[2022-05-28] MEDS: OLANZAPINE 5MG TABLET PO SCH ×2 (09:58→16:28)
[2022-05-28] MEDS ORDERED: HYDROCODONE/ACETAMINOPHEN 10/325MG TABLET PO PRN (12:45)
[2022-05-28] MEDS: DIPHENHYDRAMINE 25MG CAPSULE PO PRN (15:26)
[2022-05-28 17:31] VITALS: BP 108/47
== END 2022-05-28 18:39 | disposition home health service (06) | DRG 710 ==
LOC: ER 14:17 → MICUSO 18:17 → EDBEDREQTM 18:18 → EDBEDREQ 18:18 → MICUSO 03-28 14:50 → 7WST 04-05 13:06 → 7EST 04-05 13:23 → 4WST 04-19 17:22 → 6EST 05-02 23:43 → 5WST 05-11 20:44
PROVIDERS: ADMIT Internal Medicine; ATTEND Internal Medicine
PROC: 5A1955Z Respiratory Ventilation, Greater than 96 Consecutive Hours (ICD-10-PCS; principal; 2022-03-29)
PROC: 0BH17EZ Insertion of Endotracheal Airway into Trachea, Via Natural or Artificial Opening (ICD-10-PCS; 2022-03-29)
PROC: 0RG10A0 Fusion of Cervical Vertebral Joint with Interbody Fusion Device, Anterior Approach, Anterior Column, Open Approach (ICD-10-PCS; 2022-03-29)
PROC: 00NW0ZZ Release Cervical Spinal Cord, Open Approach (ICD-10-PCS; 2022-03-30)
PROC: 0RG2071 Fusion of 2 or more Cervical Vertebral Joints with Autologous Tissue Substitute, Posterior Approach, Posterior Column, Open Approach (ICD-10-PCS; 2022-03-30)
PROC: 01N10ZZ Release Cervical Nerve, Open Approach (ICD-10-PCS; 2022-03-30)
PROC: 4A11X4G Monitoring of Peripheral Nervous Electrical Activity, Intraoperative, External Approach (ICD-10-PCS; 2022-03-30)
PROC: 05HY33Z Insertion of Infusion Device into Upper Vein, Percutaneous Approach (ICD-10-PCS; 2022-04-06)
PROC: B54MZZA Ultrasonography of Right Upper Extremity Veins, Guidance (ICD-10-PCS; 2022-04-06)
PROC: 30233N1 Transfusion of Nonautologous Red Blood Cells into Peripheral Vein, Percutaneous Approach (ICD-10-PCS; 2022-04-13)
PROC: 0JBR0ZZ Excision of Left Foot Subcutaneous Tissue and Fascia, Open Approach (ICD-10-PCS; 2022-05-28)
DX: A41.02 Sepsis due to Methicillin resistant Staphylococcus aureus (principal); J96.01 Acute respiratory failure with hypoxia; G06.1 Intraspinal abscess and granuloma; G82.50 Quadriplegia, unspecified; U07.1 COVID-19; E43 Unspecified severe protein-calorie malnutrition; J44.0 Chronic obstructive pulmonary disease with (acute) lower respiratory infection; K76.6 Portal hypertension; E87.1 Hypo-osmolality and hyponatremia; E11.69 Type 2 diabetes mellitus with other specified complication; M46.22 Osteomyelitis of vertebra, cervical region; F20.9 Schizophrenia, unspecified; F31.9 Bipolar disorder, unspecified; N39.0 Urinary tract infection, site not specified; M48.02 Spinal stenosis, cervical region; K61.0 Anal abscess; K74.60 Unspecified cirrhosis of liver; I50.30 Unspecified diastolic (congestive) heart failure; J15.8 Pneumonia due to other specified bacteria; E03.9 Hypothyroidism, unspecified; F17.200 Nicotine dependence, unspecified, uncomplicated; F41.1 Generalized anxiety disorder; M47.816 Spondylosis without myelopathy or radiculopathy, lumbar region; J39.0 Retropharyngeal and parapharyngeal abscess; D50.9 Iron deficiency anemia, unspecified; M53.2X2 Spinal instabilities, cervical region; K21.9 Gastro-esophageal reflux disease without esophagitis; S91.302A Unspecified open wound, left foot, initial encounter; X58.XXXA Exposure to other specified factors, initial encounter; I11.0 Hypertensive heart disease with heart failure; Z86.61 Personal history of infections of the central nervous system; Z91.A9 Caregiver's noncompliance with patient's other medical treatment and regimen; Z88.8 Allergy status to other drugs, medicaments and biological substances; Y93.89 Activity, other specified; Y92.89 Other specified places as the place of occurrence of the external cause; Y99.8 Other external cause status; Z68.22 Body mass index [BMI] 22.0-22.9, adult
CPT/HCPCS: 36415; 36573; 36600; 71045; 72040; 72156; 72157; 72158; 74018; 74176; 76000; 76700; 80048; 80053; 80076; 80202; 81003; 82270; 82375; 82550; 82607; 82728; 82746; 82805; 82962; 83540; 83550; 83605; 83880; 84145; 84478; 84484; 85014; 85018; 85025; 85027; 85044; 85651; 86850; 86900; 86920; 87070; 87075; 87077; 87186; 87426; 88311; 92610; 93005; 94003; 95925; 95926; 95928; 95929; 97110; 97116; 97162; 97164; 97166; 97168; 97530; 97535; 99291; A6261; A9577; C1713; C1725; C9803; J0360; J0696; J1100; J1170; J1580; J1815; J1885; J1940; J2060; J2250; J2270; J2405; J2543; J2704; J2710; J3010; J3370; J3490; J7030; J7050; J7060; J7121; J8540; L0172; P9016; Q0163; U0003; U0005; A4315; C1762